=== PATIENT | female | born 2005 | race Caucasian/White ===

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

== ENCOUNTER 2023-03-08 12:31 | Outpatient (CLI) | payer OTHER, SELFPAY ==
[2023-03-08 13:31] LABS: Hematocrit 40.4 % (37.0-47.0); Hemoglobin 13.3 g/dL (12.0-15.0); Mean Corpuscular HGB Conc 32.9 g/dl (32-36); Mean Corpuscular Volume 91.2 fl (80-100); Mean Platelet Volume 9.8 fl (7.4-10.4); Platelet Count Result 307 k/mm3 (150-375); Red Blood Count 4.43 M/mm3 (4.2-5.4); Red Cell Distribution Width 12.5 % (11.5-14.5)
[2023-03-08 14:10] LABS: Thyroid Stimulating Hormone 0.297 uIU/mL (0.465-4.680)
[2023-03-08 14:19] LABS: Free T4 Free Thyroxine 0.96 ng/mL (0.78-2.19)
[2023-03-12 15:45] LABS: Prolactin 7.3
== END 2023-03-08 12:32 | disposition home or self-care (01) ==
LOC: ANHLAB 12:36
PROVIDERS: Visit Provider Nurse Practitioner
DX: N64.52 Nipple discharge (principal)
CPT/HCPCS: 36415; 84146; 84439; 84443; 85027

== ENCOUNTER → 2023-03-14 14:40 | Outpatient (CLI) | payer OTHER, SELFPAY ==
--- NOTE | ~2023-03-14 | US_ITS ---
US breast RT complete DATE: 03/14/2023 14:59 INDICATION: Right clear right nipple discharge TECHNIQUE: Complete sonographic imaging of right breast including all 4 quadrants and subareolar area COMPARISON: None FINDINGS: No suspicious mass or shadowing is detected. No cyst or other significant sonographic findi ng is noted. IMPRESSION: Negative Reviewed, dictated and finalized at [facility] Reviewed, dictated and finalized at [facility]. IMPRESSION: Negative
== END ==
PROVIDERS: PCP Nurse Practitioner; Visit Provider Nurse Practitioner
DX: N64.52 Nipple discharge (principal)
CPT/HCPCS: 76641

== ENCOUNTER 2023-10-13 07:22 | Outpatient (CLI) | payer OTHER, SELFPAY ==
[2023-10-13 07:52] LABS: Basophils Absolute Auto 0.1 K/mm3 (0.0-0.1); Basophils Percent Auto 1.3 % (0.2-1.2); Eosinophils Absolute Auto 0.4 K/mm3 (0-0.3); Hematocrit 39.7 % (37.0-47.0); Hemoglobin 12.8 g/dL (12.0-15.0); Immature Granulocyte Absolute 0.02 K/mm3 (0.00-0.031); Immature Granulocyte Percent A 0.3 % (0-0.5); Lymphocytes Absolute Auto 2.55 K/mm3 (0.9-3.2); Lymphocytes Percent Auto 36.6 % (18.3-44.2); Mean Corpuscular HGB Conc 32.2 g/dl (32-36); Mean Corpuscular Volume 96.1 fl (80-100); Mean Platelet Volume 9.7 fl (7.4-10.4); Monocytes Absolute Auto 0.3 K/mm3 (0.1-0.6); Monocytes Percent Auto 4.6 % (2.6-8.5); Neutrophils Absolute Auto 3.6 K/mm3 (1.3-6.7); Neutrophils Percent Auto 51.2 % (45.5-73.1); Platelet Count Result 338 k/mm3 (150-375); Red Blood Count 4.13 M/mm3 (4.2-5.4); Red Cell Distribution Width 13.8 % (11.5-14.5)
[2023-10-13 08:11] LABS: Alanine Aminotransferase 15 U/L (6-35); Albumin Level 4.4 g/dL (3.5-5.1); Alkaline Phosphatase 38 U/L (38-126); Anion Gap 7 mmol/L (8-16); Aspartate Amino Transferase 20 U/L (14-36); Bilirubin,Total 0.6 mg/dL (0.2-1.3); Blood Urea Nitrogen 10 mg/dL (7-17); Calcium 9.2 mg/dL (8.4-10.2); Carbon Dioxide 22 mmol/L (22-30); Chloride 109 mmol/L (98-107); Estimated Glomerular Filt Rate > 60; Glucose 107 mg/dL (65-110); Potassium 3.9 mmol/L (3.4-5.0); Sodium 138 mmol/L (137-145)
[2023-10-13 08:39] LABS: Thyroid Stimulating Hormone 0.632 uIU/mL (0.465-4.680)
== END 2023-10-13 07:23 | disposition home or self-care (01) ==
PROVIDERS: PCP Nurse Practitioner
DX: Z13.0 Encounter for screening for diseases of the blood and blood-forming organs and certain disorders involving the immune mechanism (principal); Z13.1 Encounter for screening for diabetes mellitus; Z13.29 Encounter for screening for other suspected endocrine disorder
CPT/HCPCS: 36415; 80053; 84443; 85025

== ENCOUNTER 2024-05-10 08:43 | Outpatient (CLI) | payer OTHER, SELFPAY ==
[2024-05-10 09:53] LABS: Hemoglobin A1C 5.1 % (<5.7); Thyroid Stimulating Hormone 0.635 uIU/mL (0.465-4.680)
[2024-05-12 13:24] LABS: Insulin Level Total 17.1 uIU/mL
== END 2024-05-10 08:44 | disposition home or self-care (01) ==
PROVIDERS: Visit Provider Nurse Practitioner
DX: Z13.29 Encounter for screening for other suspected endocrine disorder (principal); Z68.36 Body mass index [BMI] 36.0-36.9, adult; E66.09 Other obesity due to excess calories
CPT/HCPCS: 36415; 83036; 83525; 84439; 84443

== ENCOUNTER 2024-11-06 07:03 | Outpatient (CLI) | payer OTHER, SELFPAY ==
--- OUTSIDE RECORDS SUMMARY | 2024-11-06 07:09 | XMS_ITS | Clinical Summary ---
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 [employer] Gender Identity Not on file Sexual Orientation Not on file Plan of Treatment Health Maintenance Due Date Last Done Comments Hepatitis C Virus (HCV) Screening 2003 TdaP Immunization 2003 Human Papillomavirus (HPV) Immunization (1 - 3-dose series) 2018 Meningococcal B Immunization (1 of 2 - Standard) 2019 Hepatitis B Immunization (1 of 3 - 19+ 3-dose series) 2022 SARS-COV-2 Immunization ( - 2023- season) 2024 06/11/2021, 11/06/2020, 10/16/2020 Influenza Immunization (Seas on Ended) 2025 05/11/2021, 05/05/2020, 04/01/2019 Respiratory Syncytial Virus (RSV) Immunization (Adult) (1 - 1-dose 75+ series) 2078 Meningococcal Immunization (ACWY) Aged Out No longer eligible b ased on patient's age to complete this topic Pneumococcal Immunization Combined Aged Out No longer eligible b ased on patient's age to complete this topic Rotavirus Immunization Aged Out No lo nger eligible based on patient's age to complete this topic
--- OUTSIDE RECORDS SUMMARY | 2024-11-06 07:10 | XMS_ITS | Clinical Summary ---
Author Organization [facility] Address [address] [place] [address] Care Team Providers Care Dumpman Name Role Phone Unavailable Primary Care Provider Unavailabl e Allergies Active Allergy Reactions Criticality Noted Date Comments Adhesive Tape-Silicones Rash Low 04/21/2022 Azithromycin Rash Low 04/21/2022 Medications methylphenidate HCl (CONCERTA) 36 mg Extended Release tablet Take 1 tablet by mouth every day after a meal 30 Tablet 07/21/2022 Active Encounters Date Type Department Care Team Description 11/04/2024 External Device Data [facility] Provider, Abstract 10/08/2024 External Device Data [facility] Provider, Abstract 10/08/2024 External Device Data [facility] Provider, Abstract 09/27/2024 External Device Data [facility] Provider, Abstract 09/26/2024 External Device Data [facility] Provider, Abstract 09/23/2024 External Device Data [facility] Provider, Abstract 09/09/2024 External Device Data [facility] Provider, Abstract 08/14/2024 External Device Data [facility] Provider, Abstract 08/13/2024 External Device Data [facility] Provider, Abstract 08/12/2024 External Device Data [facility] Provider, Abstract from Last 3 Months Social History Tobacco Use Types Packs/Day Years Used Date Smoking Tobacco: Never Assessed Adolescent Education Answer Date Record ed Getting School Help Needed Not on file 02/11 Comments Unknown Sex and Gender Information Value Date Recorded Sex Assigned at Not on file Legal Sex Female 2:03 PM CDT Gender Identity Not on file Sexual Orientation Not on file Plan of Treatment Health Maintenance Due Date Last Done Comments CHLAMYDIA SCREENING (ANNUAL) 11-24 YEARS 2014 HPV VACCINES (1 - 3-dose series) 2018 DTAP/TDAP/TD VACCINES (1 - Tdap) 2022 HEPATITIS B VACCINES (1 of 3 - 19+ 3-dose series) 05/23 INFLUENZA VACCINE (#1) 2024 CERVICAL CANCER SCREENING 2024 HPV/Cotest (21-29) 2024 PAP SMEAR 2024 Insurance RX [facility] [employer]
--- OUTSIDE RECORDS SUMMARY | 2024-11-06 07:10 | XMS_ITS | Encounter Summary ---
Author Organization [facility] Address [address] [place] [address] Care Team Providers Care Steam Flattener Name Role Phone Unavailable Primary Care Provider Unavailabl e Encounter Details Date Type Department Care Team (Late st Contact Info) Description 11/04/2024 External Device Data [facility] Provider, Abstract NO ADDRESS ON FILE Social History Tobacco Use Types Packs/Day Years Used Date Smoking Tobacco: Never Assessed Adolescent Education Answer Date Record ed Getting School Help Needed Not on file 02/11 Comments Unknown Sex and Gender Information Value Date Recorded Sex Assigned at Not on file Legal Sex Female 2:03 PM CDT Gender Identity Not on file Sexual Orientation Not on file documented as of this encounter Plan of Treatment Not on file documented as of this encounter Visit Diagnoses Not on filedocumented in this encounter
--- OUTSIDE RECORDS SUMMARY | 2024-11-06 07:10 | XMS_ITS | Clinical Summary ---
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 Estimator Name Role Phone Shelby Greer Primary Care Provider [phone] Allergies Active Allergy Reactions Criticality Noted Date Comments Adhesive Tape-Silicones Rash Medium 04/21/2022 Azithromycin Rash,Urticaria Medium 04/03/2017 Atxgvlxe-Hsanzgpbhp-Rjhwtkmzg Urticaria Medium 2016 Medications chlorhexidine (PERIDEX) 0.12 % solution 07/24/19 24 Active clindamycin (CLEOCIN T) 1 % external solution 08/04/19 24 Active Vestura, 28, 3-0.02 mg per tablet Take 1 tablet by mouth daily 09/17/19 24 Active ondansetron (ZOFRAN) 4 mg tablet Take by mouth 07/24/19 24 Active PreviDent 5000 Sensitive 1.1-5 % paste USE DIRECTED TWICE DAILY TO BRUSH 07/31/19 24 Active metFORMIN XR (GLUCOPHAGE XR) 500 mg 24 hr tablet TAKE 1 TABLET BY MOUTH EVERY DAY FOR 1 WEEK THEN INCREASE TO TWICE A DAY 08/12/19 25 Active PreviDent 5000 Plus 1.1 % cream 2 (two) times a day 06/23/20 24 Active sertraline (ZOLOFT) 100 mg tabletIndications :CARMELINA (generalized anxiety disorder) Take 1 tablet (100 mg total) by mouth daily 90 tablet 1 08/28/19 25 Active aluminum chloride (DRYSOL) 20 % external solutionIndicatio ns:Hyperhidrosis Apply topically nightly To the affected area. Wash off in the morning. 35 mL 08/28/19 25 Active spironolactone (ALDACTONE) 25 mg tabletIndications :Acne vulgaris TAKE 1 TABLET (25 MG TOTAL) BY MOUTH DAILY. 90 tablet 09/23/19 25 Active methylPREDNISolon e (MEDROL DOSEPACK) 4 mg Dosepack Take as directed on package. 21 tablet 10/24/19 25 Active lisdexamfetamine (VYVANSE) 40 mg capsuleIndication s:Attention deficit hyperactivity disorder (ADHD), predominantly inattentive type Take 1 capsule (40 mg total) by mouth every morning 30 capsule 11/04/19 25 Active etonogestreL (NEXPLANON) 68 mg implantIndication s: Contraception by subdermal route 025 Discontinu ed(Therapy completed) lisdexamfetamine (VYVANSE) 40 mg capsuleIndication s:Attention deficit hyperactivity disorder (ADHD), predominantly inattentive type Take 1 capsule (40 mg total) by mouth every morning 30 capsule 10/07/19 25 025 Discontinu ed(Reorder ) indomethacin (INDOCIN) 50 mg capsule Take 1 capsule (50 mg total) by mouth 3 (three) times a day with meals for 7 days Take with food 21 capsule 10/24/19 25 025 Active Problems Problem Noted Date Diagnosed Date Morbid obesity with BMI of 45.0-49.9, adult 12/2024 Assessment & Plan (08/28/2024 2:58 PM SALVAGE DIVER): Reviewed BMI Focus on healthy diet options Work on healthy changes Menorrhagia 02/07/2024 Assessment & Plan (02/08/2024 9:17 AM CDT): Chronic. Managed by gynecology with Sonja and CP. Depressive disorder 11/21/2023 Assessment & Plan (08/28/2024 2:58 PM SALVAGE DIVER): Chronic and not controlled. Increase Zoloft to 100 mg daily. Follow-up in 1 month for recheck or sooner if needed. Assessment & Plan (02/08/2024 9:17 AM CDT): Chronic. See above. Acne vulgaris 09/21/2023 Assessment & Plan (08/28/2024 2:57 PM SALVAGE DIVER): Chronic. No longer sees Dermatology. We discussed trial of spironolactone to help with acne. She was recently diagnosed with insulin resistance, and I think PCOS is also possibility. We discussed side effects. Patient agreeable. Will follow-up in 1 month for recheck. Check BMP at that time. Assessment & Plan (02/08/2024 9:43 AM CDT): Chronic and controlled with xvaw-ecu-jidemrb treatments. Continue current care. Assessment & Plan (09/21/2023 8:30 AM SALVAGE DIVER): Chronic. Currently using clindamycin solution and chlorhexidine as needed. Patient will let me know when she needs refills. Continue current management. CARMELINA (generalized anxiety disorder) 09/21/2023 Assessment & Plan (08/28/2024 2:58 PM SALVAGE DIVER): See above. Assessment & Plan (02/08/2024 9:44 AM CDT): Patient is doing well with her sertraline 75 mg right now. Will wait and see how she does with her new job. If needed we can increase to 100 mg. She will update me via [employer] to let me know how she is doing. Assessment & Plan (09/21/2023 8:31 AM SALVAGE DIVER): Chronic. Not currently controlled. Patient interested in increasing her medication. Will increase Zoloft to 75 mg daily. Will plan to follow-up in 4-6 weeks if symptoms are still uncontrolled and can continue to titrate dose as needed. Patient voiced agreement with this plan. All questions answered. Attention deficit hyperactiv ity disorder (ADHD), predominantly inattentive type 09/21/2023 Assessment & Plan (08/28/2024 2:58 PM SALVAGE DIVER): Chronic. Symptoms are still uncontrolled. Will increase Vyvanse to 40 mg daily. Follow-up in 1 month for recheck. Controlled substance contract signed today, 08/28/2024. Urine drug screening ordered today. Assessment & Plan (02/08/2024 9:43 AM CDT): Chronic. Symptoms not controlled. Will plan to increase her Vyvanse to 30 mg when she is due for her next refill in February. Plan to follow-up in 6 months or sooner if needed. Assessment & Plan (09/21/2023 8:32 AM SALVAGE DIVER): Chronic. Currently doing well on Vyvanse 20 mg daily. Continue current management. Patient will let me know when she is due for refill. Follow-up 6 months or sooner as needed. Routine adult health maintenance 09/20/2023 Overview (02/07/2024): Health Maintenance: -PCV20: N/A -Tdap vaccine: 2014 -Influenza vaccine: 2022 -Shingles vaccine: N/A -Colonoscopy: N/A -Last WWE: @21 -Last Mammogram: N/A -Last DEXA: N/A -Last eye exam: N/A -Last MHA: N/A Assessment & Plan (02/08/2024 9:44 AM CDT): Health Maintenance: -PCV20: N/A -Tdap vaccine: 2014 -Influenza vaccine: 2022 -Shingles vaccine: N/A -Colonoscopy: N/A -Last WWE: @21 -Last Mammogram: N/A -Last DEXA: N/A -Last eye exam: N/A -Last MHA: N/A Second dose of Men B administered today. She is otherwise up-to-date on health maintenance. Work on healthy diet and exercise habits. Resolved Problems Problem Noted Date Diagnosed Date Resolved Date Class 2 obesity due to exces s calories without serious comorbidity with body mass index (BMI) of 38.0 to 38.9 in adult 09/21/202312/2024 Assessment & Plan (02/08/2024 9:17 AM CDT): Reviewed BMI Focus on healthy diet options Work on healthy changes Assessment & Plan (09/21/2023 8:30 AM SALVAGE DIVER): Reviewed BMI Focus on healthy diet options Work on healthy changes Encounters Date Type Department Care Team Description 10/23/2024 3:00 PM CDT Office Visit [address] [phone] Shelby Greer PA Right hip pain (Primary Dx); Acute bilateral low back pain with right-sided sciatica; Hot flashes; Attention deficit hyperactivity disorder (ADHD), predominantly inattentive type; Depressive disorder; CARMELINA (generalized anxiety disorder) 10/03/[address] [phone] Shelby Greer PA 09/30/[address] [phone] Shelby Greer PA Prior Auth Approval for Lisdexamfetamine Dimesylate 08/28/2024 2:35 PM SALVAGE DIVER Lab [facility] [address] [place] [id number] Encounter for drug screening 08/28/2024 2:00 PM SALVAGE DIVER Office Visit [address] [phone] Shelby Greer PA Attention deficit hyperactivity disorder (ADHD), predominantly inattentive type (Primary Dx); Encounter for drug screening; Depressive disorder; CARMELINA (generalized anxiety disorder); Acne vulgaris; Hyperhidrosis; Morbid obesity with BMI of 45.0-49.9, adult (HCC) from Last 3 Months Immunizations Immunization Administration Dates Next Due DTaP 06/08/2008, 5,2003,10/01,2003 H1N1 Nasal 06/03/2009 HPV, Unspecified 02/26/2018,06/09/2017, 7 Hep A, Pediatric 06/07/2006,06/28/2005 Hep B Vaccine 04/29/2004,2003,2003 HiB 09/05/2004, 4,2003,07/31 Influenza LAIV (Nasal) 06/03/2009 Influenza, Quadrivalent, Saige l Culture-based MDCK, Preservative Free, Antibiotic Free, Intramuscular 05/04/2023 Influenza, Quadrivalent, Spl it, Intramuscular 05/05/2022 Influenza, Quadrivalent, Spl it, Preservative Free, Intramuscular 05/11/2021,05/05/2020 Influenza, Trivalent, Preser vative Free, Intramuscular 04/25/2024 MMR 12/29/2008,09/05/2004 Meningococcal ACWY, Unspecified 02/26/2021,04/01 Meningococcal B, OMV (Bexsero) 02/08/2024 Meningococcal B, unspecified 02/27/2022 Meningococcal MCV4, Unspecified 06/28/2005 Pneumococcal Conjugate 7-Valent 06/06/20 04,02/26/2004,2003,07/31 Polio, Unspecified 06/08/2008, 4,2003,10/01 Tdap 02/17/2015 Varicella 02/17/2015,06/06/2004 Surgical History Surgery Date Site/Laterality Comments TYMPANOSTOMY TUBE PLACEMENT Bilateral Family History Medical History Relation Name Comments ADD / ADHD Brother Hyperlipidemia Father Hypertension Father seaonal allergies Father No Known Problems Maternal Grandfather Hyperlipidemia Maternal Grandmother Hypertension Maternal Grandmother Diabetes Mother Hyperlipidemia Mother Supraventricular tachycardia Mother non ischemic cardiomyopathy Mother Atrial fibrillation Paternal Grandfather Diabetes Paternal Grandmother Hyperlipidemia Paternal Grandmother Hypertension Paternal Grandmother Obesity Paternal Grandmother Autism Sister Relation Name Status Comments Brother Alive Father Alive Maternal Grandfather Maternal Grandmother Alive Mother Alive Paternal Grandfather Alive Paternal Grandmother Sister Social History Tobacco Use Types Packs/Day Years Used Date Smoking Tobacco: Never Smokeless Tobacco: Never Tobacco Cessation:Counseling Given: Not Answered AUDIT-C Answer Date Recorded Q1: How often do you have a drink containing alcohol? Never 09/21/2023 Q2: How many drinks containi ng alcohol do you have on a typical day when you are drinking? Patient does not drink Q3: How often do you have si x or more drinks on one occasion? Never 09/21/2023 PHQ-2 Answer Date Recorded PHQ-2 Total Score (If total score is 3 or more points, staff should administer the PHQ-9) 2 08/28/2024 PHQ-9 Answer Date Recorded PHQ-9 Total Score 19 08/28/2024 Comments No Sex and Gender Information Value Date Recorded Sex Assigned at Not on file Legal Sex Female 4:27 AM SALVAGE DIVER Gender Identity Female 09/21/2023 9:06 AM SALVAGE DIVER Sexual Orientation Straight 02/01/2024 8: 48 AM CDT Obstetrics History Last Filed Vital Signs Vital Sign Reading Time Taken Comments Blood Pressure 120/90 10/23/2024 2:59 PM CDT Pulse 92 10/23/2024 2:59 PM CDT Temperature 35.6 C (96.1 F) 10/23/2024 2:59 PM CDT Respiratory Rate 18 10/23/2024 2:59 PM CDT Oxygen Saturation 98% 10/23/2024 2:59 PM CDT Inhaled Oxygen Concentration - - Weight 108.9 kg (240 lb) 10/23/2024 2:59 PM CDT Height 152.4 cm (5') 10/23/2024 2:59 PM CDT Body Mass Index 46.87 10/23/2024 2:59 PM CDT Plan of Treatment Health Maintenance Due Date Last Done Comments Cervical Cancer Screening 2003 Hepatitis C Screening 2003 Meningococcal B Vaccine (2 o f 2 - Bexsero SCDM 2-dose series) 08/10/2024 02/08/2024, 02/27/2022 Regular Well Visit/Exam 18-64 02/07/2025 02/08/2024 DTaP/Tdap/Td Vaccine (7 - Td or Tdap) 02/17/2025 02/17/2015, 06/08/2008, 12/02/2004, Additional history exists Depression Screening 08/28/2025 08/28/2024, 08/28/2024, 09/21/2023, Additional history exists Hepatitis B Screening Completed 04/29/2004 , 2003, 2003 Pneumococcal vaccine <65 Completed 004, 02/26/2004, 2003, Additional history exists Varicella Vaccines Completed 02/17/2015, 06/06/2004 HPV Vaccines Completed 02/26/2018, 05/23, 02/20/2017 Meningococcal Vaccine Completed 02/26/2021 , 04/01/2015, 06/28/2005 Covid-19 Vaccine Completed 04/25/2024, , 05/24/2022, Additional history exists Influenza Vaccine Completed 04/25/2024, , 05/05/2022, Additional history exists Procedures Procedure Name Priority Date/Time Associated Diagnosis Comments DRUGS OF ABUSE SCREEN, URINE WITH REFLEX CONFIRMATION Routine 08/28/2024 2:39 PM SALVAGE DIVER Encounter for drug screening from Last 3 Months Results * (ABNORMAL) Drugs of Abuse Screen, Urine with Reflex Confirmation (08/28/2024 2:39 PM SALVAGE DIVER) Amphetamine, ur Not Detected CutOff 500ng/mL Comment: Interpretive Data - Amphetamines: Samples containing greater than 500 ng/mL d-methamphetamine or other cross-reacting amphetamine compounds are reported as positive. Amphetamine immunoassays are subject to significant false positive rates due to cross-reactivity of non-amphetamine drugs. Confirmatory testing required for definitive results. Current Interpretive Data was last reviewed 2023. Testing performed by: [address] [id number] Barbiturates, ur Not Detected CutOff 200ng/mL [facility] Comment: Interpretive Data - Barbiturates: Samples containing greater than 200 ng/mL secobarbital or other cross-reacting barbiturate compounds are reported as positive. False positive and false negative results are possible. Confirmatory testing required for definitive results. Current Interpretive Data was last reviewed 2023. Testing performed by: [address] [address] Benzodiazepines, ur Not Detected CutOff 100ng/mL [facility] Comment: Interpretive Data - Benzodiazepines: Samples containing greater than 100 ng/mL nordiazepam or other cross-reacting compounds are reported as positive. False positive and false negative results are possible. Confirmatory testing required for definitive results. Current Interpretive Data was last reviewed 2023. Testing performed by: [address] [address] Cannabinoids, ur Screen Positive, presumptive (A) CutOff 50 ng/mL [facility] Comment: Interpretive Data - Cannabinoids: Samples containing greater than 50 ng/mL delta-9 THC -COOH or other cross- reacting compounds are reported as positive. False positive and false negative results are possible. Confirmatory testing required for definitive results. Current Interpretive Data was last reviewed 2023. Testing performed by: [facility], [address] [place] [address]., [id number] Cocaine, ur Not Detected CutOff 150ng/mL [facility] Comment: Interpretive Data - Cocaine: Samples containing greater than 150 ng/mL benzoylecgonine or other cross- reacting compounds are reported as positive. False positive and false negative results are possible. Confirmatory testing required for definitive results. Current Interpretive Data was last reviewed 2023. Testing performed by: [address] [address] Fentanyl, Ur Not Detected CutOff 5 ng/mL [facility] Comment: Interpretive Data - Fentanyl: Samples containing greater than 1 ng/mL fentanyl or other cross-reacting fentanyl compounds are reported as positive. False positive and false negative results are possible. Confirmatory testing required for definitive results. Current Interpretive Data was last reviewed 2023. Testing performed by: [address] [address] Methadone, ur Not Detected CutOff 300ng/mL [facility] Comment: Interpretive Data - Methadone: Samples containing greater than 300 ng/mL d,l-methadone or other cross-reacting compounds are reported as positive. False positive and false negative results are possible. Confirmatory testing required for definitive results. Current Interpretive Data was last reviewed 2023. Testing performed by: [address] [id number] Opiates, ur Not Detected CutOff 300ng/mL [facility] Comment: Interpretive Data - Opiates: Samples containing greater than 300 ng/mL morphine or other cross-reacting compounds are reported as positive. False positive and false negative results are possible. Confirmatory testing required for definitive results. Current Interpretive Data was last reviewed 2023. Testing performed by: [address] [address] Oxycodone, ur Not Detected CutOff 100ng/mL [facility] Comment: Interpretive Data - Oxycodone: Samples containing greater than 100 ng/mL oxycodone or other cross-reacting compounds are reported as positive. False positive and false negative results are possible. Confirmatory testing required for definitive results. Current Interpretive Data was last reviewed 2023. Testing performed by: [address] [address] Phencyclidine, ur Not Detected CutOff 25 ng/mL [facility] Comment: Interpretive Data - Phencyclidine: Samples containing greater than 25 ng/mL phencyclidine or other cross-reacting compounds are reported as positive. False positive and false negative results are possible. Confirmatory testing required for definitive results. Current Interpretive Data was last reviewed 2023. Testing performed by: [address] [address] Urine Creatinine 91 mg/dL [facility] Comment: Interpretive Data Urine Creatinine: < 10 mg/dL is extremely dilute = or > 10 but < 20 mg/dL is dilute = or > 20 mg/dL is normal Current Interpretive Data was last revised on 2017. Testing performed by: [address] [address] Urine 08/28/2024 2:39 PM SALVAGE DIVER 08/28/2024 6:18 PM SALVAGE DIVER Narrative [facility] - 08/28/2024 6:43 PM SALVAGE DIVER Drug of Abuse screening is performed by immunoassay for medical purposes only. This is not to be used for Pain Management purposes. If Detected, confirmation testing will be performed for Amphetamines, Cocaine, Fentanyl, Methadone, Opiates, Oxycodone or Phencyclidine. Shelby [facility] URINE ORDERABLES Ann nguyen Result [facility] [address] [facility] Department of Laboratories [place], [place] [id number] from Last 3 Months Insurance [facility] Care Teams Auto Body Estimator Relationship Specialty Start Date End Date Shelby Greer PA [address] [place] [address] PCP - General Family Medicine 09/10/23
--- OUTSIDE RECORDS SUMMARY | 2024-11-06 07:10 | XMS_ITS | Data Portability ---
Author Organization [facility] Kahn Address [address] [place] [address] Assessment Encounter Date Assessment Date Assessment LastModified by Organization Details LastModified Time 09/22/2022 09/22/2022 17 y/o here for f/u of ADHD management, who also struggles with acute testing anxiety Not available 09/24/2022 10:50:07 03/23/2023 03/23/2023 17 y/o here with h/o ADHD, stable sxs, but worsening anxiety and new consideration of depression Not available 03/26/2023 13:38:37 Plan of Treatment Reminders Order Date Submit Date Provider Last Modified By Organization Details Last Modified Time Details Appointments None recorded. Lab PPD (purified protein derivative) , skin test 2021 022 [place] In-Office Order, Internal Use Only DO Not Attach Compendium DO Not Attach Compendium, Do Not Delete/merge, [id number] 14:44:43 Referral None recorded. Procedures None recorded. Surgeries None recorded. Imaging None recorded. Medication Orders Vyvanse 20 mg capsule 2022 023 [facility] #[id number], [address] [place], [place], [id number], 3 14:57:24 sertraline 50 mg tablet 2022 023 [facility] #[id number], [address] [place], [place], [id number], 3 14:57:24 hydroxyzine HCl 25 mg tablet 2022 023 [facility] #[id number], [address], [place], [id number], 3 12:52:00 Concerta 36 mg tablet,exte nded release 2022 023 [facility] #53418, [address], [place], [id number], 3 10:45:22 benzoyl peroxide 10 % topical cleanser 2021 [facility] #50058, [address], [place], [id number], 2 14:43:12 clindamycin phosphate 1 % topical solution 2021 022 [facility] #37034, [address], [place], [id number], 2 14:43:13 Patient TargetsNo targets recorded. Patient InstructionsNo instructions recorded. Reason for Referral None Reported. Results Created Date Observation Date Name Description Value Unit Range Abnormal Flag Note LastModifiedBy Organization Detail LastModifiedTime 05/10/20 22 05/10/2022 PPD (morgan fied prote in deriv ative ), skin test Result Negati ve Not Available In-Office Order Internal Use Only DO Not Attach Compendium DO Not Attach Compendium, Do Not Delete/merge, [id number] 05/08/2022 12:36:38 Result Notes None recorded. Problems Name Problem SNOMED Code Status Onset Date Resolution Date Notes Provider Name and Address Organization Details Recorded Time Attention deficit hyperactiv ity disorder 033030318 Active 2022 Nelli Hubbard MD Attn: April g,[address] 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, [place], [address], [facility] 3 13:36:03 Depressive disorder 80384349 Active 2022 sertraline started 04/14, needs to find counselor Nelli Hubbard MD Attn: April g,[address] [facility], [place], [address], [facility] 3 13:38:55 Problem Notes None recorded. Medical Equipment None Reported. Allergies Allergen ID Allergen Name Allergen Category Reaction Reaction Severity Criticality Documentation Date Start Date Code Code System Note Provider Name and Address Organization Details Recorded Time 611243 Medicinal product containin g cephalosp grace and acting as antibacte rial agent (product) medicatio n rash Not available low 09/22/2022 60063 9009 SNOMED Not Available Not Available Not Available 511516 azithromy sudheer medicatio n rash Not available low 09/22/2022 03214 RxNorm Not Available Not Available Not Available Medications Name Sig Start Date Stop Date Status Note LastModified by Organization Details LastModified Time Prescriptio n - Renewal 09/24 completed Not Available Not Available Not Available Prescriptio n - New active Not Available Not Available Not Available ondansetron HCl 4 mg tablet TAKE 1 TABLET BY MOUTH EVERY 4 TO 6 HOURS NEEDED active Not Available Not Available No t Available benzoyl peroxide 10 % topical cleanser WASH THE AFFECTED AREA(S) BY TOPICAL ROUTE ONCE DAILY at night active Not Available Not Available No t Available oxycodone-a cetaminophe n 5 mg-325 mg tablet active Not Available Not Available No t Available hydroxyzine HCl 25 mg tablet take 1 tablet as needed before tests, not more than twice per day active Not Available Not Available No t Available methylpredn isolone 4 mg tablets in a dose pack FOLLOW PACKAGE DIRECTION S 08/20 completed Not Available Not Available Not Available sertraline 50 mg tablet TAKE 1 TABLET BY MOUTH EVERY DAY active Not Available Not Available No t Available methylpheni date ER 36 mg tablet,exte nded release 24 hr TAKE 1 TABLET BY MOUTH EVERY DAY AFTER MEALS active Not Available Not Available No t Available amoxicillin 875 mg-potassiu m clavulanate 125 mg tablet TAKE 1 TABLET BY MOUTH TWICE DAILY WITH FOOD 08/20 completed Not Available Not Available Not Available clindamycin phosphate 1 % topical solution APPLY THIN LAYER TOPICALLY TO THE AFFECTED AREA EVERY DAY AFTER CLEANING active Not Available Not Available No t Available chlorhexidi ne gluconate 0.12 % mouthwash active Not Available Not Available No t Available PreviDent 5000 Sensitive 1.1 %-5 % dental paste USE DIRECTED TWICE DAILY TO BRUSH active Not Available Not Available No t Available Vyvanse 20 mg capsule 2023 active Not Available Not Available Not Avai lable Vestura (28) 3 mg-0.02 mg tablet TAKE 1 TABLET BY MOUTH EVERY DAY active Not Available Not Available No t Available Vyvanse 10 mg capsule TAKE 1 CAPSULE BY MOUTH DAILY 10/16 completed Not Available Not Available Not Available Vitals Date Recorded Body temperature Body weight Systolic blood pressure Diastolic blood pressure Provider Name and Address Organization Details Last Updated DateTime 05/31/2022 98.8 [degF] 32765 g 124 mm[Hg] 66 mm[Hg] Rubi Brewster RN [place] - [facility] 2 14:12:40 Date Recorded Body temperature Body weight Body mass index (BMI) Percentile per age and sex Body mass index (BMI) Body height Systolic blood pressure Diastolic blood pressure Provider Name and Address Organization Details Last Updated DateTime 3 97.2 [degF] 95327.1 3 g 89 % 27.3 kg/m2 172.72 cm 120 mm[Hg] 80 mm[Hg] Yenny Webb MA [place] - [facility] 3 12:31:39 Date Recorded Body height Body temperature Body mass index (BMI) Body mass index (BMI) Percentile per age and sex Body weight Systolic blood pressure Diastolic blood pressure Provider Name and Address Organization Details Last Updated DateTime 3 172.72 cm 98.3 [degF] 30.7 kg/m2 94 % 81254.3 6 g 118 mm[Hg] 80 mm[Hg] Yenny Webb MA [place] - [facility] 3 14:33:30 Social History None recorded. Functional Status None recorded. Mental Status None recorded. Family History Nothing Reported. Medical History No medical history recorded. Gynecological History Statement/Question Response Current Control Method Implant LMP Definite Obstetrics History GPAL:G 0 P 0 0 0 0 Immunizations Vaccine Type Date Status Note Provider Nam e and Address Organization Details Recorded Time Influenza, split virus, quadrivalent, preservative 9 completed Haylie Grady RN null, [place] [facility] 02/26/2023 12:15:37 COVID-19, mRNA, LNP-S, PF, 30 mcg/0.3 mL dose 1 completed Haylie Gr[place] [facility] 02/26/2023 12:15:37 COVID-19, mRNA, LNP-S, PF, 30 mcg/0.3 mL dose 1 completed Haylie Gr[place] [facility] 02/26/2023 12:15:37 COVID-19, mRNA, LNP-S, PF, 30 mcg/0.3 mL dose 1 completed Haylie [place] [facility] 02/26/2023 12:15:37 COVID-19, mRNA, LNP-S, bivalent, PF, 30 mcg/0.3 mL dose 2 completed Haylie [place] [facility] 02/26/2023 12:15:37 Novel [id number]-[id number], nasal 9 completed Haylie Gr[place] [facility] 02/26/2023 12:15:38 Influenza, split virus, quadrivalent, PF 0 completed Haylie [place] [facility] 02/26/2023 12:15:38 Influenza, split virus, quadrivalent, PF 1 completed Haylie [place] [facility] 02/26/2023 12:15:38 DTaP, unspecified formulation 5 completed Eduard Je[place] [facility] 09/21/2023 12:28:05 DTaP, unspecified formulation 8 completed [place]ard [place] [facility] 09/21/2023 12:28:09 DTaP-Hep B-IPV 4 completed [place]ard [place] [facility] 09/21/2023 12:28:18 DTaP-Hep B-IPV 4 completed [place]ard [place] [facility] 09/21/2023 12:28:22 DTaP-Hep B-IPV 4 completed [place]ard [place] [facility] 09/21/2023 12:28:27 Hep A, pediatric, unspecified formulation 5 completed [place]ard [place] [facility] 09/21/2023 12:28:42 Hep A, pediatric, unspecified formulation 6 completed [place] [facility] 09/21/2023 12:28:46 Hib, unspecified formulation 4 completed [place] [facility] 09/21/2023 12:28:59 Hib, unspecified formulation 4 completed [place]ard [place] [facility] 09/21/2023 12:29:03 Hib, unspecified formulation 4 completed [place] [facility] 09/21/2023 12:29:06 Hib, unspecified formulation 5 completed [place] [facility] 09/21/2023 12:29:09 HPV9 7 completed [place] [facility] 09/21/2023 12:29:19 HPV9 7 completed [place] [facility] 09/21/2023 12:29:23 HPV9 8 completed [place] [facility] 09/21/2023 12:29:27 IPV 8 completed [place] [facility] 09/21/2023 12:29:36 Meningococcal MCV4O 5 completed [place] [facility] 09/21/2023 12:29:47 Meningococcal MCV4O 1 [place] [facility] 09/21/2023 12:29:51 meningococcal B, OMV 2 [place] [facility] 09/21/2023 12:30:01 MMR 5 [place] [facility] 09/21/2023 12:30:11 meningococcal MPSV4 5 [place] [facility] 09/21/2023 12:30:28 pneumococcal conjugate PCV 7 4 [place] [facility] 09/21/2023 12:30:37 pneumococcal conjugate PCV 7 4 [place] [facility] 09/21/2023 12:30:40 pneumococcal conjugate PCV 7 4 completed [place] [facility] 09/21/2023 12:30:43 pneumococcal conjugate PCV 7 4 [place] [facility] 09/21/2023 12:30:49 Tdap 5 completed [place] [facility] 09/21/2023 12:30:58 varicella 4 [place] [facility] 09/21/2023 12:31:08 varicella 5 [place] [facility] 09/21/2023 12:31:11 MMR 9 [place] [facility] 09/21/2023 12:33:26 Influenza, split virus, quadrivalent, preservative 2 completed [place] [facility] 05/07/2022 17:15:46 Past Encounters Encounter ID Performer Location Encounter Start Date Encounter Closed Date Diagnosis/Indication Diagnosis SNOMED-CT Code Diagnosis ICD10 Code Diagnosis Note [id number] Eduard Jeong MA [facility] [address] [place] [address] 05/03/2022 16:43:33 05/08/2022 10:28:04 Active or passive immunization 293364580 Z23 [id number] Elyssa Rodríguez [facility] [address] [place] [address] 05/08/2022 12:32:21 05/11/2022 13:57:36 Tuberculosis screening 342467305 Z11.1 [id number] Nelli Hubbard MD [facility] [address] [facility] [address] [place] [address] 05/31/2022 14:07:31 06/01/2022 21:51:29 Attention deficit hyperactivity disorder 813984242 F90.9 -pt doing well on current dose of 36mg methylphen idate, doing well in school socially and academical ly, able to eat and sleep well, gaining weight, BP is stable-rev iewed possible se's to obs for-cont routine sleep and exercise and healthy diet-plan for f/u 6 months, sooner prn concerns Acne 75611849 L70.9 -gentle skin care, wash with cetaphil can continue-b egin meds written, can begin every other night obs for drying/red ness-discu ssed skin improvemen t can take 4 weeks, be patient-f/ u sooner prn acute worsening or changes, specifical ly in scalp/hair line-sun screen discussed Long-term drug therapy 533129165 Z79.638 [id number] Nelli Hubbard MD [facility] [address] [place] [address] 09/22/2022 12:16:23 09/26/2022 09:49:21 Attention deficit hyperactivity disorder 619667832 F90.9 -pt doing well on current dose of concerta but insurance coverage changing, I will send in concerta but if not covered we will trial vyvanse-sh e is doing well in school socially and academical ly, able to eat and sleep well, gaining weight, BP is stable-she does well on homework, struggles with test taking-rev iewed possible se's to obs for-cont routine sleep and exercise and healthy diet-plan for f/u weekly if starting new vyvanse at low dose 10mg, sooner prn concerns Anxiety disorder F41.9 -test taking anxiety, affects her grades, does well on homework-w ill trial hydroxyzin e for tests, 1-2 tabs prn-recomm end trial prior to testing days to obs for se's such as drowsiness , pt to call in 1 week with update group home current use of drug therapy for attention deficit hyperactivity disorder 1043917087 42039 Z79.858 [id number] Nelli Hubbard MD Childcare Physician s [address] [facility] [address] [place] [address] 03/23/2023 14:23:55 03/27/2023 09:06:06 Mixed anxiety and depressive disorder 761124059 F41.8 -discussed pt's main source of sxs: social settings/c lassroom, test taking-rev iewed screens including CARMELINA, PHQ9-discu ssed importance /benefits of counseling , recommende d and gave resources to find a counselor and discussed being persistent with phone calls to get an appt-discu ssed r/b, possible side effects , including Black Box Warning of SSRI, today we will begin sertraline -discussed need for compliance , likely need to taper medication , or possible change if side effects or ineffectiv eness-disc ussed goals of medical therapy and minimum of 6 months duration-r ecommend excellent sleep hygiene, daily exercise and healthy diet-Pt denies SI, or any plan or intent for self harm today, we reviewed safety plan if these sxs arise, gave hotline resource [phone] en-f/u in 4 weeks, sooner prn any concerns Attention deficit hyperactivity disorder 526503497 F90.9 -pt doing well on current dose of vyvanse 20mg, doing well in school socially and academical ly, able to eat and sleep well, gaining weight, BP is stable-rev iewed possible se's to obs for-cont routine sleep and exercise and healthy diet-plan for f/u 6 months, sooner prn concerns Long-term drug therapy 670260761 Z79.899 Health Concerns Section Related Observation LastModified by Organization Detai ls LastModified Time None Recorded Concern Status LastModified by Organization Details LastModified Time None Recorded Advance Directives Directive None Recorded Payers Encounter Date Sequence Insurance Name Policy Number Policy Carlos Covered Member ID Carlos Member ID Guarantor Name 05/03/2022 1 [employer] [id number] Valeria Lombardoger [id number] Roseline Lombardoger 05/08/2022 1 UMR [id number] Valeria Kahn Ganger [id number] Roseline Lombardoger 05/31/2022 1 UMR [id number] Valeria Kahn Ganger [id number] Roseline Lombardoger 09/22/2022 1 UMR [id number] Valeria Kahn Ganger [id number] Roseline Lombardoger 03/23/2023 1 UMR [id number] Valeria Lombardoger [id number] Roseline Knapp Notes Date Note Type Note Provider Name and Address Organization Details Recorded Time 05/31/2022 text/html She is here for f/u for ADHD, pt feels she is doing well and denies any se's such as sleeping difficulty, concentration difficulty, appetite suppression. BP is WNL today. weight is stable. She has questions about change in oil on skin, inc acne onchest, back after getting LARC placed. she uses cetaphil wash right now. no other changes in meds/skin care. Nelli Hubbard MD Attn: Accounting,[address] [facility], [place], [address], [facility] 06/01/2022 17:12:47 03/23/2023 text/html Pt here today to discuss anxiety and depressionCurrent therapy: prn hydroxyzineShe has struggled with anxiety, was taking hydroxyzine as needed, but sxs have worsenedShe feels anxious in classroom setting. Doesn't like school work. 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 She just feels down, not sure why. No counselor.See CARMELINA and PHQ9 - both are moderate ADHD --pt doing well and denies side effects such as emotional swings, decreased appetite, sleeping difficulty, stomach aches, zoning out-pt denies issues taking medication and is compliant on school days Nelli Hubbard MD Attn: Accounting,[address] [facility], [place], [address], [facility] 03/26/2023 13:40:38 OBGyn Episode No OBEpisode recorded.
--- OUTSIDE RECORDS SUMMARY | 2024-11-06 07:10 | XMS_ITS | Clinical Summary ---
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 Teacher Name Role Phone Unavailable Primary Care Provider Unavailabl e Social History Tobacco Use Types Packs/Day Years Used Date Smoking Tobacco: Never Assessed Comments Unknown Sex and Gender Information Value Date Recorded Sex Assigned at Not on file Legal Sex Female 5:54 PM CDT Gender Identity Not on file Sexual Orientation Not on file Plan of Treatment Health Maintenance Due Date Last Done Comments Cervical Cancer Screening Pa p Smear (Age 21 to 29) Every 3 Years 2003 Cervical Cancer Screening 2003 Annual Physical 2006 HPV Vaccines (1 - 3-dose series) 2018 Meningococcal B Vaccine (1 o f 2 - Standard) 2019 Hepatitis C 2021 DTaP, Tdap and Td Vaccines ( 1 - Tdap) 2022 Hepatitis B Vaccines (1 of 3 - 19+ 3-dose series) 2022 COVID-19 Vaccine (1 - 2023-2 5 season) 2024 Meningococcal Vaccine Aged Out No perry patricio eligible based on patient's age to complete this topic Pneumococcal Vaccine: Pediat rics (0 to 5 Years) and At-Risk Patients (6 to 49 Years) Aged Out No longer eligible b ased on patient's age to complete this topic RSV Immunizations Under 20 Months Aged Out No longer eligible based on patient's age to complete this topic
--- OUTSIDE RECORDS SUMMARY | 2024-11-06 07:10 | XMS_ITS | Referral Summary ---
Author Organization [address] Address [address] [place] [id number] Care Team Providers Care Transplanter Name Role Phone Shelby Greer Primary Care Provider [phone] Encounters Date Type Department Care Team Description 10/23/2024 3:00 PM CDT Office Visit [address] [address] Shelby Greer PA Right hip pain (Primary Dx); Acute bilateral low back pain with right-sided sciatica; Hot flashes; Attention deficit hyperactivity disorder (ADHD), predominantly inattentive type; Depressive disorder; CARMELINA (generalized anxiety disorder) 10/03/[address] [address] Shelby Greer PA 09/30/[address] [address] Shelby Greer PA Prior Auth Approval for Lisdexamfetamine Dimesylate 08/28/2024 2:35 PM CIGAR BINDER Lab [facility] [address] [place] [address] Encounter for drug screening 08/28/2024 2:00 PM CIGAR BINDER Office Visit [address] [address] Shelby Greer PA Attention deficit hyperactivity disorder (ADHD), predominantly inattentive type (Primary Dx); Encounter for drug screening; Depressive disorder; CARMELINA (generalized anxiety disorder); Acne vulgaris; Hyperhidrosis; Morbid obesity with BMI of 45.0-49.9, adult (HCC) from Last 3 Months Allergies Active Allergy Reactions Criticality Noted Date Comments Adhesive Tape-Silicones Rash Medium 04/21/2022 Azithromycin Rash,Urticaria Medium 04/03/2017 Fcjiiuzb-Ualoaksnff-Ihlibtqre Urticaria Medium 2016 Medications chlorhexidine (PERIDEX) 0.12 [...] 12/2024 Assessment & Plan (08/28/2024 2:58 PM CIGAR BINDER): Reviewed BMI Focus on healthy diet options Work on healthy changes Menorrhagia 02/07/2024 Assessment & Plan (02/08/2024 9:17 AM CDT): Chronic. Managed by gynecology with Sonja and PANKAJ. Depressive disorder 11/21/2023 Assessment & Plan (08/28/2024 2:58 PM CIGAR BINDER): Chronic and not controlled. Increase Zoloft to 100 mg daily. Follow-up in 1 month for recheck or sooner if needed. Assessment & Plan (02/08/2024 9:17 AM CDT): Chronic. See above. Acne vulgaris 09/21/2023 Assessment & Plan (08/28/2024 2:57 PM CIGAR BINDER): Chronic. No longer sees Dermatology. We discussed trial of spironolactone to help with acne. She was recently diagnosed with insulin resistance, and I think PCOS is also possibility. We discussed side effects. Patient agreeable. Will follow-up in 1 month for recheck. Check BMP at that time. Assessment & Plan (02/08/2024 9:43 AM CDT): Chronic and controlled with upbc-igm-rqpbbwg treatments. Continue current care. Assessment & Plan (09/21/2023 8:30 AM CIGAR BINDER): Chronic. Currently using clindamycin solution and chlorhexidine as needed. Patient will let me know when she needs refills. Continue current management. CARMELINA (generalized anxiety disorder) 09/21/2023 Assessment & Plan (08/28/2024 2:58 PM CIGAR BINDER): See above. Assessment & Plan (02/08/2024 9:44 AM CDT): Patient is doing well with her sertraline 75 mg right now. Will wait and see how she does with her new job. If needed we can increase to 100 mg. She will update me via [employer] to let me know how she is doing. Assessment & Plan (09/21/2023 8:31 AM CIGAR BINDER): Chronic. Not currently controlled. Patient interested in increasing her medication. Will increase Zoloft to 75 mg daily. Will plan to follow-up in 4-6 weeks if symptoms are still uncontrolled and can continue to titrate dose as needed. Patient voiced agreement with this plan. All questions answered. Attention deficit hyperactiv ity disorder (ADHD), predominantly inattentive type 09/21/2023 Assessment & Plan (08/28/2024 2:58 PM CIGAR BINDER): Chronic. Symptoms are still uncontrolled. Will increase [...] needed. Assessment & Plan (09/21/2023 8:32 AM CIGAR BINDER): Chronic. Currently doing well on Vyvanse 20 [...] -Shingles vaccine: N/A -Colonoscopy: N/A -Last WWE: @ -Last Mammogram: N/A -Last DEXA: N/A -Last [...] changes Assessment & Plan (09/21/2023 8:30 AM CIGAR BINDER): Reviewed BMI Focus on healthy diet options Work on healthy changes Immunizations Immunization Administration Dates Next Due DTaP [...] Unspecified 06/08/2008, 4,2003,10/01 Tdap 02/17/2015 Varicella 02/17/2015,06/06/2004 Social History Tobacco Use Types Packs/Day Years [...] on file Legal Sex Female 4:27 AM CIGAR BINDER Gender Identity Female 09/21/2023 9:06 AM CIGAR BINDER Sexual Orientation Straight 02/01/2024 8: 48 AM CDT Last Filed Vital Signs Vital Sign Reading [...] 10/23/2024 2:59 PM CDT Plan of Treatment Not on file Procedures Procedure Name Priority Date/Time Associated Diagnosis Comments DRUGS OF ABUSE SCREEN, URINE WITH REFLEX CONFIRMATION Routine 08/28/2024 2:39 PM CIGAR BINDER Encounter for drug screening from Last 3 Months Results * (ABNORMAL) Drugs of Abuse Screen, Urine with Reflex Confirmation (08/28/2024 2:39 PM CIGAR BINDER) Amphetamine, ur Not Detected CutOff 500ng/mL Comment: Interpretive Data - Amphetamines: Samples containing greater than 500 ng/mL d-methamphetamine or other cross-reacting amphetamine compounds are reported as positive. Amphetamine immunoassays are subject to significant false positive rates due to cross-reactivity of non-amphetamine drugs. Confirmatory testing required for definitive results. Current Interpretive Data was last reviewed 2023. Testing performed by: [address] [address] Barbiturates, ur Not Detected CutOff 200ng/mL [facility] Comment: Interpretive Data - Barbiturates: Samples containing greater than 200 ng/mL secobarbital or other cross-reacting barbiturate compounds are reported as positive. False positive and false negative results are possible. Confirmatory testing required for definitive results. Current Interpretive Data was last reviewed 2023. Testing performed by: [address] [address] Benzodiazepines, ur Not Detected CutOff 100ng/mL [facility] Comment: Interpretive Data - Benzodiazepines: Samples containing greater than 100 ng/mL nordiazepam or other cross-reacting compounds are reported as positive. False positive and false negative results are possible. Confirmatory testing required for definitive results. Current Interpretive Data was last reviewed 2023. Testing performed by: [facility], [address] [place] [address]., [id number] Cannabinoids, ur Screen Positive, presumptive (A) CutOff 50 ng/mL [facility] Comment: Interpretive Data - Cannabinoids: Samples containing greater than 50 ng/mL delta-9 THC -COOH or other cross- reacting compounds are reported as positive. False positive and false negative results are possible. Confirmatory testing required for definitive results. Current Interpretive Data was last reviewed 2023. Testing performed by: [facility], [address] [place] [address], [place]., [address] Cocaine, ur Not Detected CutOff 150ng/mL [facility] Comment: Interpretive Data - Cocaine: Samples containing greater than 150 ng/mL benzoylecgonine or other cross- reacting compounds are reported as positive. False positive and false negative results are possible. Confirmatory testing required for definitive results. Current Interpretive Data was last reviewed 2023. Testing performed by: [address] [address] Fentanyl, Ur Not Detected CutOff 5 ng/mL [facility] Comment: Interpretive Data - Fentanyl: Samples containing greater than 1 ng/mL fentanyl or other cross-reacting fentanyl compounds are reported as positive. False positive and false negative results are possible. Confirmatory testing required for definitive results. Current Interpretive Data was last reviewed 2023. Testing performed by: [address] [address] Methadone, ur Not Detected CutOff 300ng/mL [facility] Comment: Interpretive Data - Methadone: Samples containing greater than 300 ng/mL d,l-methadone or other cross-reacting compounds are reported as positive. False positive and false negative results are possible. Confirmatory testing required for definitive results. Current Interpretive Data was last reviewed 2023. Testing performed by: [address] [address] Opiates, ur Not Detected CutOff 300ng/mL [facility] Comment: Interpretive Data - Opiates: Samples containing greater than 300 ng/mL morphine or other cross-reacting compounds are reported as positive. False positive and false negative results are possible. Confirmatory testing required for definitive results. Current Interpretive Data was last reviewed 2023. Testing performed by: [address] [address] Oxycodone, ur Not Detected CutOff 100ng/mL [facility] Comment: Interpretive Data - Oxycodone: Samples containing greater than 100 ng/mL oxycodone or other cross-reacting compounds are reported as positive. False positive and false negative results are possible. Confirmatory testing required for definitive results. Current Interpretive Data was last reviewed 2023. Testing performed by: [address] [address] Phencyclidine, ur Not Detected CutOff 25 ng/mL [facility] Comment: Interpretive Data - Phencyclidine: Samples containing greater than 25 ng/mL phencyclidine or other cross-reacting compounds are reported as positive. False positive and false negative results are possible. Confirmatory testing required for definitive results. Current Interpretive Data was last reviewed 2023. Testing performed by: [address] [address] Urine Creatinine 91 mg/dL [facility] Comment: Interpretive Data Urine Creatinine: < 10 mg/dL is extremely dilute = or > 10 but < 20 mg/dL is dilute = or > 20 mg/dL is normal Current Interpretive Data was last revised on 2017. Testing performed by: [address] [address] Urine 08/28/2024 2:39 PM CIGAR BINDER 08/28/2024 6:18 PM CIGAR BINDER Narrative [facility] - 08/28/2024 6:43 PM CIGAR BINDER Drug of Abuse screening is performed by immunoassay for medical purposes only. This is not to be used for Pain Management purposes. If Detected, confirmation testing will be performed for Amphetamines, Cocaine, Fentanyl, Methadone, Opiates, Oxycodone or Phencyclidine. Shelby [facility] URINE ORDERABLES Ann l Result [facility] [address] [facility] Department [place] [address] from Last 3 Months Insurance [facility] Care Teams Transplanter Relationship Specialty Start Date End Date Shelby Greer PA [address] [place] [address] PCP - General Family Medicine 09/10/23
--- OUTSIDE RECORDS SUMMARY | 2024-11-06 07:10 | XMS_ITS | Clinical Summary ---
Author Organization [facility] Address [address] [place] [address] Care Team Providers Care User Experience Architect Name Role Phone Enma Corral MD Primary Care Provider [phone] Source Comments [facility],non-owned Affiliates and Associated Physician Practices is amultiple site organization consisting of ambulatory clinics and hospital sitesin [place], [place], [place] and [place]. This disclosure is being madepursuant to the Care Everywhere program and may not contain all information available regarding this patient. Last updated 18.[facility] [employer] Allergies Active Allergy Reactions Criticality Noted Date Comments Jiidseno-Bhbmlsdvbc-Oarepxaru Urticaria Medium 2016 Azithromycin Urticaria Medium 04/03/2017 Medications * Be aware that medications may not be up to date on this document. Alwaysverify current medications with the patient. cetirizine (ZYRTEC) 10 MG tablet Take 10 mg by mouth once daily Active ibuprofen (MOTRIN) 800 MG tablet Take 800 mg by mouth every 6 hours as needed for Pain Active acetaminophen (TYLENOL) 500 MG tablet Take 500 mg by mouth every 4 hours as needed for Fever or Pain Maximum allowable Acetaminophen amount = 4 Grams (4000 mg) / 24 hours. Active methylphenidat e CR 36 MG tablet Take 36 mg by mouth every morning Active Adapalene-Rafael oyl Peroxide (EPIDUO EX) Active Active Problems Problem Noted Date Diagnosed Date Knee pain, right anterior 05/22/2017 Social History Tobacco Use Types Packs/Day Years Used Date Smoking Tobacco: Never Smokeless Tobacco: Never Comments Unknown Sex and Gender Information Value Date Recorded Sex Assigned at Not on file Legal Sex Female 2:23 PM CDT Gender Identity Not on file Sexual Orientation Not on file Last Filed Vital Signs Vital Sign Reading Time Taken Comments Blood Pressure - - Pulse - - Temperature - - Respiratory Rate - - Oxygen Saturation - - Inhaled Oxygen Concentration - - Weight 66 kg (145 lb 8.1 oz) 04/12/2018 3:58 PM CDT Height 165.2 cm (5' 5.04 ) 04/12/2018 3:58 PM CD T Body Mass Index 24.18 04/12/2018 3:58 PM CDT Plan of Treatment Health Maintenance Due Date Last Done Comments HIV SCREENING 2018 HPV VACCINE (1 - 3-dose series) 2018 CHLAMYDIA/GONORRHEA SCREENING 2019 MENINGOCOCCAL (Group B) VACC INE SHARED DECISION-MAKING (1 of 2 - Standard) 2019 HEPATITIS C SCREENING 05/30/2021 DTAP/TDAP/TD VACCINES (1 - Tdap) 2022 HEPATITIS B VACCINE (1 of 3 - 19+ 3-dose series) 2022 COVID-19 VACCINE (1 - 2023-2 5 season) 2024 DEPRESSION SCREENING 07/23/2024 INFLUENZA VACCINE (Season Ended) 2025 ZOSTER VACCINE (1 of 2) 2053 HIB VACCINE Aged Out No longer eligi ble based on patient's age to complete this topic MENINGOCOCCAL GROUPS A/C/Y/W VACCINE Aged Out No longer eligible b ased on patient's age to complete this topic PNEUMOCOCCAL VACCINE Aged Out No long er eligible based on patient's age to complete this topic Insurance [facility] Care Teams User Experience Architect Relationship Specialty Start Date End Date Enma Corral MD [address] [place] [address] PCP - General Pediatrics 03/27/17
[2024-11-06 07:31] LABS: Basophils Absolute Auto 0.1 K/mm3 (0.0-0.1); Basophils Percent Auto 0.4 % (0.2-1.2); Eosinophils Absolute Auto 0.4 K/mm3 (0-0.3); Eosinophils Percent Auto 2.6 % (0-4.4); Hemoglobin 13.7 g/dL (12.0-15.0); Immature Granulocyte Absolute 0.05 K/mm3 (0.00-0.031); Immature Granulocyte Percent A 0.4 % (0-0.5); Lymphocytes Absolute Auto 2.41 K/mm3 (0.9-3.2); Lymphocytes Percent Auto 17.1 % (18.3-44.2); Mean Corpuscular HGB Conc 31.9 g/dl (32-36); Mean Corpuscular Hemoglobin 29.5 pg (26-34); Mean Corpuscular Volume 92.7 fl (80-100); Mean Platelet Volume 9.5 fl (7.4-10.4); Monocytes Absolute Auto 0.6 K/mm3 (0.1-0.6); Neutrophils Absolute Auto 10.6 K/mm3 (1.3-6.7); Neutrophils Percent Auto 75.5 % (45.5-73.1); Platelet Count Result 351 k/mm3 (150-375); Red Blood Count 4.64 M/mm3 (4.2-5.4); Red Cell Distribution Width 13.5 % (11.5-14.5); White Blood Count 14.1 K/mm3 (4.5-10.0)
[2024-11-06 07:46] LABS: Alanine Aminotransferase 16 U/L (6-35); Albumin Level 4.1 g/dL (3.5-5.1); Alkaline Phosphatase 46 U/L (38-126); Anion Gap 11 mmol/L (4-12); Aspartate Amino Transferase 18 U/L (14-36); Bilirubin,Total 0.3 mg/dL (0.2-1.3); Blood Urea Nitrogen 12 mg/dL (7-17); CRP 2.7 mg/dL (<1.0); Carbon Dioxide 21 mmol/L (22-30); Chloride 104 mmol/L (98-107); Estimated Glomerular Filt Rate > 60; Glucose 99 mg/dL (65-110); Potassium 4.6 mmol/L (3.4-5.0); Sodium 136 mmol/L (137-145)
[2024-11-06 08:18] LABS: Erythrocyte Sedimentation Rate 12 mm/hr (0-20)
[2024-11-08 10:33] LABS: TSH QUEST 0.46 mIU/L
== END 2024-11-06 07:04 | disposition home or self-care (01) ==
LOC: ANHLAB 07:07
PROVIDERS: Visit Provider Physician Assistant
DX: R23.2 Flushing (principal)
CPT/HCPCS: 36415; 80053; 84443; 85025; 85652; 86140

== ENCOUNTER 2025-03-09 17:31 | Emergency (ER) | payer OTHER, SELFPAY ==
--- NOTE | ~2025-03-09 | XR_ITS ---
LUMBAR SPINE INDICATION: Status post recent fall. TECHNIQUE: 3 views lumbar spine COMPARISON: None FINDINGS: No fracture, subluxation or dislocation. No evidence for spondylolysis or spondylolisthesi s. Vertebral bodies and disk spaces are preserved. There is a right pseudoarticulation at L5-S1. IMPRESSION: 1: No significant abnormality of the lumbar spine identified. Reviewed, dictated and finalized at location A.
--- OUTSIDE RECORDS SUMMARY | 2025-03-09 17:33 | XMS_ITS | Clinical Summary ---
Author Organization [address] Address [address] [place] [address] [place] [address] Care Team Providers Care Technical Sales Advisor Name Role Phone Shelby Greer Primary Care Provider [phone] Allergies Active Allergy Reactions Criticality Noted Date Comments Adhesive Tape-Silicones Rash Medium 04/21/2022 Azithromycin Rash,Urticaria Medium 04/03/2017 Gulitgyk-Jvmdqidrvw-Oulmojfdy Urticaria Medium 2016 Medications chlorhexidine (PERIDEX) 0.12 [...] (two) times a day 06/23/20 24 Active aluminum chloride (DRYSOL) 20 % external solutionIndicati ons:Hyperhidrosi s Apply topically nightly To the affected area. Wash off in the morning. 35 mL 08/28/19 25 Active methylPREDNISolo ne (MEDROL DOSEPACK) 4 mg Dosepack Take as directed on package. 21 tablet 10/24/19 25 Active spironolactone (ALDACTONE) 25 mg tabletIndication s:Acne vulgaris Take 1 tablet (25 mg total) by mouth daily 90 tablet 12/30/19 25 Active sertraline (ZOLOFT) 100 mg tabletIndication s:CARMELINA (generalized anxiety disorder) TAKE 1 TABLET BY MOUTH EVERY DAY 90 tablet 1 02/20/20 25 Active lisdexamfetamine (VYVANSE) 40 mg capsuleIndicatio ns:Attention deficit hyperactivity disorder (ADHD), predominantly inattentive type Take 1 capsule (40 mg total) by mouth every morning 30 capsule 03/09/20 25 Active sertraline (ZOLOFT) 100 mg tabletIndication s:CARMELINA (generalized anxiety disorder) Take 1 tablet (100 mg total) by mouth daily 90 tablet 1 08/28/19 25 025 Discontinued lisdexamfetamine (VYVANSE) 40 mg capsuleIndicatio ns:Attention deficit hyperactivity disorder (ADHD), predominantly inattentive type Take 1 capsule (40 mg total) by mouth every morning 30 capsule 02/05/20 25 025 Discontinued(R eorder) Active Problems Problem Noted Date Diagnosed Date Morbid obesity with BMI of 45.0-49.9, adult 12/2024 Assessment & Plan (08/28/2024 2:58 PM STEAM AND GAS TURBINES ASSEMBLER): Reviewed BMI Focus on healthy diet options Work on healthy changes Menorrhagia 02/07/2024 Assessment & Plan (02/08/2024 9:17 AM CDT): Chronic. Managed by gynecology with Sonja and PANKAJ. Depressive disorder 11/21/2023 Assessment & Plan (08/28/2024 2:58 PM STEAM AND GAS TURBINES ASSEMBLER): Chronic and not controlled. Increase Zoloft to 100 mg daily. Follow-up in 1 month for recheck or sooner if needed. Assessment & Plan (02/08/2024 9:17 AM CDT): Chronic. See above. Acne vulgaris 09/21/2023 Assessment & Plan (08/28/2024 2:57 PM STEAM AND GAS TURBINES ASSEMBLER): Chronic. No longer sees Dermatology. We discussed trial of spironolactone to help with acne. She was recently diagnosed with insulin resistance, and I think PCOS is also possibility. We discussed side effects. Patient agreeable. Will follow-up in 1 month for recheck. Check BMP at that time. Assessment & Plan (02/08/2024 9:43 AM CDT): Chronic and controlled with rjbt-qom-xvamkiz treatments. Continue current care. Assessment & Plan (09/21/2023 8:30 AM STEAM AND GAS TURBINES ASSEMBLER): Chronic. Currently using clindamycin solution and chlorhexidine as needed. Patient will let me know when she needs refills. Continue current management. CARMELINA (generalized anxiety disorder) 09/21/2023 Assessment & Plan (08/28/2024 2:58 PM STEAM AND GAS TURBINES ASSEMBLER): See above. Assessment & Plan (02/08/2024 9:44 AM CDT): Patient is doing well with her sertraline 75 mg right now. Will wait and see how she does with her new job. If needed we can increase to 100 mg. She will update me via [employer] to let me know how she is doing. Assessment & Plan (09/21/2023 8:31 AM STEAM AND GAS TURBINES ASSEMBLER): Chronic. Not currently controlled. Patient interested in increasing her medication. Will increase Zoloft to 75 mg daily. Will plan to follow-up in 4-6 weeks if symptoms are still uncontrolled and can continue to titrate dose as needed. Patient voiced agreement with this plan. All questions answered. Attention deficit hyperactiv ity disorder (ADHD), predominantly inattentive type 09/21/2023 Assessment & Plan (08/28/2024 2:58 PM STEAM AND GAS TURBINES ASSEMBLER): Chronic. Symptoms are still uncontrolled. Will increase [...] needed. Assessment & Plan (09/21/2023 8:32 AM STEAM AND GAS TURBINES ASSEMBLER): Chronic. Currently doing well on Vyvanse 20 mg daily. Continue current management. Patient will let me know when she is due for refill. Follow-up 6 months or sooner as needed. Routine adult health maintenance 09/20/2023 Overview (02/07/2024): Health Maintenance: -PCV20: N/A -Tdap vaccine: 2015 -Influenza vaccine: 2022 -Shingles vaccine: N/A -Colonoscopy: N/A -Last WWE: @21 -Last Mammogram: N/A -Last DEXA: N/A -Last eye exam: N/A -Last MHA: N/A Assessment & Plan (02/08/2024 9:44 AM CDT): Health Maintenance: -PCV20: N/A -Tdap vaccine: 2015 -Influenza vaccine: 2022 -Shingles vaccine: N/A -Colonoscopy: [...] changes Assessment & Plan (09/21/2023 8:30 AM STEAM AND GAS TURBINES ASSEMBLER): Reviewed BMI Focus on healthy diet options [...] on file Legal Sex Female 4:27 AM STEAM AND GAS TURBINES ASSEMBLER Gender Identity Female 09/21/2023 9:06 AM STEAM AND GAS TURBINES ASSEMBLER Sexual Orientation Straight 02/01/2024 8: 48 AM [...] 02/17/2025 02/17/2015, 06/08/2008, 12/02/2004, Additional history exists Influenza Vaccine (#1) 2025 , 05/04/2023, 05/05/2022, Additional history exists Depression Screening 08/28/2025 08/28/2024, 08/28/2024, 09/21/2023, Additional history exists Hepatitis B Screening Completed 04/29/2004 , 2003, 2003 Pneumococcal vaccine <65 Completed 004, 02/26/2004, 2003, Additional history exists Varicella Vaccines Completed 02/17/2015, 06/06/2004 HPV Vaccines Completed 02/26/2018, 05/23, 02/20/2017 Meningococcal Vaccine Completed 02/26/2021 , 04/01/2015, 06/28/2005 Covid-19 Vaccine Completed 04/25/2024, , 05/24/2022, Additional [place] [address] [facility] Address: [facility] [address] [place] [address] Care Teams Technical Sales Advisor Relationship Specialty Start Date End Date Shelby Greer PA [address] [place] [phone] PCP - General Family Medicine 09/10/23
--- OUTSIDE RECORDS SUMMARY | 2025-03-09 17:33 | XMS_ITS | Clinical Summary ---
Author Organization [facility] Care Team Providers Care Technical Artist Name Role Phone Unavailable Primary Care Provider Unavailabl e Social History Tobacco Use Types Packs/Day Years Used Date Smoking Tobacco: Never Assessed Comments Unknown Sex and Gender Information Value Date Recorded Sex Assigned at Not on file Legal Sex Female 7:20 AM EMERGENCY VEHICLE OPERATIONS INSTRUCTOR Gender Identity Not on file Sexual Orientation [...] season) 2024 06/11/2021, 11/06/2020, 10/16/2020 Influenza Immunization (#1) 03/23/202504/23, 05/05/2020, 04/01/2019 Respiratory Syncytial Virus (RSV) Immunization [...]
--- OUTSIDE RECORDS SUMMARY | 2025-03-09 17:33 | XMS_ITS | Clinical Summary ---
Author Organization [facility] Address [address] [place] [address] Care Team Providers Care Welder Gun Name Role Phone Unavailable Primary Care Provider [...]
--- OUTSIDE RECORDS SUMMARY | 2025-03-09 17:33 | XMS_ITS | Clinical Summary ---
Author Organization [facility] Address [address] [place] [address] Care Team Providers Care Seed Laboratory Assistant Name Role Phone Unavailable Primary Care Provider Unavailabl e Allergies Active Allergy Reactions Criticality Noted Date Comments Adhesive Tape-Silicones Rash Low 04/21/2022 Azithromycin Rash Low 04/21/2022 Medications methylphenidate HCl (CONCERTA) 36 mg Extended Release tablet Take 1 tablet by mouth every day after a meal 30 Tablet 07/21/2022 Active Encounters Date Type Department Care Team Description 02/04/2025 External Device Data [facility] Provider, Abstract 02/03/2025 External Device Data [facility] Provider, Abstract 01/06/2025 External Device Data [facility] Provider, Abstract 12/11/2024 External Device Data [facility] Provider, Abstract 12/11/2024 External Device Data [facility] Provider, Abstract 12/10/2024 External Device Data [facility] Provider, Abstract 12/09/2024 External Device Data [facility] Provider, Abstract [...] of 3 - 19+ 3-dose series) 05/23 CERVICAL CANCER SCREENING 2024 HPV/Cotest (21-29) 2024 PAP SMEAR 2024 INFLUENZA VACCINE (#1) 2025 Insurance RX [facility] [employer]
--- OUTSIDE RECORDS SUMMARY | 2025-03-09 17:33 | XMS_ITS | Clinical Summary ---
Author Organization [facility] Address [address] [place] [address] Care Team Providers Care Supervisor [place] Name Role Phone Enma Corral MD Primary Care Provider [phone] [facility],non-owned Affiliates and Associated Physician Practices is amultiple site organization consisting of ambulatory clinics and hospital sitesin [place], [place], [place] and [place]. This disclosure is being madepursuant to the Care Everywhere program and may not contain all information available regarding this patient. Last updated 18.[facility] [employer] Allergies Active Allergy Reactions Criticality Noted Date Comments Tudlrtxr-Glkievbmsn-Kapfuxsbk Urticaria Medium 2016 Azithromycin Urticaria Medium 04/03/2017 [...] 3:58 PM CDT Height 165.2 cm (5' 5.04) 04/12/2018 3:58 PM CD T Body Mass [...] season) 2024 DEPRESSION SCREENING 07/23/2024 INFLUENZA VACCINE (#1) 2025 ZOSTER VACCINE (1 of 2) 2053 HIB VACCINE Aged Out No longer eligi ble based on patient's age to complete this topic MENINGOCOCCAL GROUPS A/C/Y/W VACCINE Aged Out No longer eligible b ased on patient's age to complete this topic PNEUMOCOCCAL VACCINE Aged Out No long er eligible based on patient's age to complete this topic Insurance [facility] Care Teams Supervisor [place] Relationship Specialty Start Date End Date Enma Corral MD [address] [place] [address] PCP - General Pediatrics 03/27/17
--- OUTSIDE RECORDS SUMMARY | 2025-03-09 17:33 | XMS_ITS | Continuity of Care Document ---
Author Organization [employer] [place] Address [address] [place] [address] [address] [place] [address] Phone Care Team Providers Care Striper Spray Gun Name Role Phone Magan Hinson PT Unavailable [...] Diagnoses Date Provider Providers Copied on Encounter [facility] [address] [facility], [place], [place], [id number], tel:[phone] [place] No Information 0- 7 Dellamano Magan. . Referring Provider: Osvaldo Murdock, [place], [address]. tel:[phone] [facility] [address], [place], [place], [address], [place] tel:[phone] [place] No Information 7 Dellamano Magan. . Referring Provider: Osvaldo Murdock, [address] [place], [address]. tel:[phone] [facility] [address], [place], [place], [address], tel:[phone] Ket[place] No Information 3 7 Dellamano Magan. . Referring Provider: Osvaldo Murdock, [address] [facility] [place], [address]. tel:[phone] [facility] [address], [place], [place], [address], tel:[phone] [place] No Information 7 Dellamano Magan. . Referring Provider: Osvaldo Murdock, [address] [place], [address]. tel:[phone] [facility] [address], [place], [place], [address], [place] tel:[phone] [place] No Information 7 Dellamano Magan. . Referring Provider: Osvaldo Murdock, [address] [facility] [place], [address]. tel:[phone] [facility] [address], [place], [place], [address], [place] tel:[phone] [place] No Information Oct-0 9-201 7 Dellamano Magan. . Referring Provider: Osvaldo Murdock, [address], [place], [address]. tel:[phone] [facility] [address], [place], [place], [address], [place] tel:[phone] [place] No Information Oct-0 2-201 7 Dellamano Magan. . Referring Provider: Osvaldo Murdock, [address], [place], [address]. tel:[phone] [facility] [address], [place], [place], [address], [place] tel:[phone] [place] No Information Sep-2 8-201 7 Dellamano Magan. . Referring Provider: Osvaldo Murdock, [address], [place], [address]. tel:[phone] [facility] [address], [place], [place], [address], [place] tel:[phone] [place] No Information Sep-2 6-201 7 Dellamano Magan. . Referring Provider: Osvaldo Murdock, [address], [place], [address]. tel:[phone] [facility] [address], [place], [place], [address], [place] tel:[phone] [place] No Information Sep-2 5-201 7 Dellamano Magan. . Referring Provider: Osvaldo Murdock, [address], [place], [address]. tel:[phone] [facility] [address], [place], [place], [address], [place] tel:[phone] [place] No Information Sep-2 1-201 7 Dellamano Magan. . Referring Provider: Osvaldo Murdock, [address], [place], [address]. tel:[phone] [facility] [address], [place], [place], [address], tel:[phone] [place] No Information Sep- [facility]. . Referring Provider: Osvaldo Murdock, [address], [place], [address]. tel:[phone] [facility] [address] [facility] [address], [place], [place], [address], tel:[phone] [place] No Information Sep- [facility] Magan. . Referring Provider: Osvaldo Murdock, [address], [place], [address]. tel:[phone] [facility] [address] [facility] [address], [place], [place], [address], tel:[phone] [place] Stiffness of right knee, not elsewhere classifiedMuscle weakness (generalized)Unsp ecified abnormalities of gait and mobilityPain in right knee Sep- [facility] Magan. . Referring Provider: Osvaldo Murdock, [address], [place], [address]. tel:[phone] Family History Family Member Type Diagnosis Age At Onset No Information Payers Payer name Insurance type Covered constitution party ID Rakesh galvez(s) R CI [id number] Social History Type Description Quantity Date Captured [...]
--- OUTSIDE RECORDS SUMMARY | 2025-03-09 17:35 | XMS_ITS | Continuity of Care Document ---
Author Organization [employer] [place] Address [address] [place] [address] [address] [place] [address] Phone Care Team Providers Care Clinical Education Assistant Name Role Phone Magan Hinson PT Unavailable [...] Diagnoses Date Provider Providers Copied on Encounter [facility] [address] [facility] [facility], [place], [place], [id number], tel:[phone] [place] No Information 0- 7 Dellamano Magan. . Referring Provider: Osvaldo Murdock, [place], [address]. tel:[phone] [facility] [address], [place], [place], [address], [place] tel:[phone] [place] No Information 7 Dellamano Magan. . Referring Provider: Osvaldo Murdock, [address] [place], [address]. tel:[phone] [facility] [address], [place], [place], [address], tel:[phone] [place] No Information 3 7 Dellamano Magan. . Referring Provider: Osvaldo Murdock, [address] [facility] [place], [address]. tel:[phone] [facility] [address], [place], [place], [address], tel:[phone] [place] No Information 7 Dellamano Magan. . Referring Provider: Osvaldo Murdock, [address] [place], [address]. tel:[phone] [facility] [address], [place], [place], [address], [place] tel:[phone] [place] No Information 7 Dellamano Magan. . Referring Provider: Osvaldo Murdock, [address] [facility] [place], [address]. tel:[phone] [facility] [address], [place], [place], [address], [place] tel:[phone] [place] No Information Oct-0 9-201 7 Dellamano Magan. . Referring Provider: Osvaldo Murdock, [address], [place], [address]. tel:[phone] [facility] [address], [place], [place], [address], [place] tel:[phone] [place] No Information Oct-0 2-201 7 Dellamano Magan. . Referring Provider: Osvaldo Murdock, [address], [place], [address]. tel:[phone] [facility] [address], [place], [place], [address], [place] tel:[phone] [place] No Information Sep-2 8-201 7 Dellamano Magan. . Referring Provider: Osvaldo Murdock, [address], [place], [address]. tel:[phone] [facility] [address], [place], [place], [address], [place] tel:[phone] [place] No Information Sep-2 6-201 7 Dellamano Magan. . Referring Provider: Osvaldo Murdock, [address], [place], [address]. tel:[phone] [facility] [address], [place], [place], [address], [place] tel:[phone] [place] No Information Sep-2 5-201 7 Dellamano Magan. . Referring Provider: Osvaldo Murdock, [address], [place], [address]. tel:[phone] [facility] [address], [place], [place], [address], [place] tel:[phone] [place] No Information Sep-2 1-201 7 Dellamano Magan. . Referring Provider: Osvaldo Murdock, [address], [place], [address]. tel:[phone] [facility] [address], [place], [place], [address], tel:[phone] [place] No Information Sep- [facility]. . Referring Provider: Osvaldo Murdock, [address], [place], [address]. tel:[phone] [facility] [address] [facility] [address], [place], [place], [address], tel:[phone] [place] No Information Sep- [facility]. . Referring Provider: Osvaldo Murdock, [address], [place], [address]. tel:[phone] [facility] [address] [facility] [address], [place], [place], [address], tel:[phone] [place] Stiffness of right knee, not elsewhere classifiedMuscle weakness (generalized)Unsp ecified abnormalities of gait and mobilityPain in right knee Sep- [facility]. . Referring Provider: Osvaldo Murdock, [address], [place], [address]. tel:[phone] Family History Family Member Type Diagnosis Age At Onset No Information Payers Payer name Insurance type Covered libertarian ID Rakesh galvez(s) R CI [id number] Social History Type Description Quantity Date Captured [...]
[2025-03-09 17:43] VITALS: BP 142/82; PULSE 93; RESP 18; TEMP 36.3; O2SAT 98
--- NOTE | 2025-03-09 19:12 | ED_ITS ---
HPI - Back Pain/Injury General Chief Complaint: Back Pain/Injury Stated Complaint: Fall / Back Pain Time Seen by Provider: 03/09/25 18:33 Source: patient and RN notes reviewed Mode of arrival: ambulatory Limitations: no limitations History of Present Illness HPI Narrative: Patient presents today complaining of mid to low back pain into the coccyx after she fell 2 days ago at home. She slipped and fell on some steps at her home and slid down them injuring her mid back to the buttock area bilaterally. Denies numbness, but reports some mild tingling in the low back. Denies radiation of the pain, loss of bowel or bladder control. Currently rates her pain 12/30 and has taken ibuprofen and Tylenol without improvement. Related Data Home Medications ?Medication ?Instructions ?Recorded ?Confirmed ?Last Taken ?Type drospirenone 3 mg-ethinyl tablet 09/16/20 Unknown History estradiol 0.02 mg tablet drospirenone 3 mg-ethinyl tablet 09/16/20 Unknown History estradiol 0.02 mg tablet (Dory (28)) ibuprofen 200 mg capsule 200 mg PO Q6H PRN Pain 09/16/20 Unknown History methylphenidate HCl 36 mg mg PO 09/16/20 Unknown History tablet,extended release 24 hr lisdexamfetamine 40 mg capsule mg 03/09/25 Unknown History metformin 500 mg tablet,extended mg PO 03/09/25 Unknown History release 24 hr sertraline 100 mg tablet mg 03/09/25 Unknown History spironolactone 25 mg tablet mg 03/09/25 Unknown History Allergies Allergy/AdvReac Type Severity Reaction Status Date / Time azithromycin Allergy Mild Hives Verified 03/09/25 18:00 Cephalosporins Allergy Mild Hives Verified 03/09/25 18:00 PMFSH Social History Social History Gender identity (if verbalized by the patient): Female Comments At time of signature, I have reviewed and agree with nursing past medical, surgical, social and family history unless otherwise noted. Please see nursing chart for further information. There is no relevant family history pertinent to the presenting complaint Exam Narrative: GENERAL: Well-appearing, well-nourished, and in no acute distress. HEAD: Normocephalic, atraumatic. EYES: EOMI. No redness or drainage. Conjunctivae normal. ENT: Mucous membranes pink and moist. NECK: Normal AROM. CHEST: No respiratory distress. MUSCULOSKELETAL: Midline tenderness of the lower T-spine extending to the low L-spine and coccyx without ecchymosis, step-off, crepitus noted. Bilateral paraspinal muscle tenderness associated with the areas of midline tenderness to the low T-spine extending to the lower L-spine. Patient has an area of ecchymosis to the right buttock as well. Distal sensation intact bilaterally. Saddle sensation intact. Capillary refill normal. Bilateral pedal and radial pulses normal. Hand cardiac rehabilitation specialist equal and strong. 5/5 strength in BLE. 2+ patellar reflexes bilaterally. EXTREMITIES: Normal range of motion. No edema. SKIN: Warm, dry, no rash. Capillary refill normal. Normal skin turgor. NEURO: No focal deficits. Alert and oriented x3. Gait steady. PSYCH: Normal affect. No signs of depression or anxiety. Course Course Level of Care: Express Care Visit Vital Signs Vital signs: Vital Signs Temperature 97.3 F L 03/09/25 17:43 Pulse Rate 93 03/09/25 17:43 Respiratory Rate 18 03/09/25 17:43 Blood Pressure 142/82 H 03/09/25 17:43 Pulse Oximetry 98 03/09/25 17:43 Oxygen Delivery Room Air 03/09/25 17:43 Temperature 97.3 F L 03/09/25 17:43 Pulse Rate 93 03/09/25 17:43 Respiratory Rate 18 03/09/25 17:43 Blood Pressure 142/82 H 03/09/25 17:43 Pulse Oximetry 98 03/09/25 17:43 Oxygen Delivery Room Air 03/09/25 17:43 Reviewed MDM - Back Pain/Injury MDM Narrative Medical decision making narrative: 19-year-old female patient presents today after slipping and falling down 5 stairs at home injuring her back from low T-spine to low L-spine extending to the coccyx. She has been taking ibuprofen and Tylenol at home without improvement. Upon exam, patient has some midline tenderness in the low T-spine to the coccyx and some bilateral paraspinal muscle tenderness to the same area with an area of ecchymosis to the right buttock. Neurovascularly intact bilaterally. L-spine x-rays normal. Recommend continuing NSAIDs. Prescription for Flexeril sent to pharmacy. Recommend PCP follow-up in 1-2 weeks if symptoms are not improving. Patient agrees with plan. Vital signs stable. Anticipatory guidance given. Differential Diagnosis Differential diagnosis: Likely strain of lumbar region, thoracic back pain and other (Contusion, compression fracture, bulging disc) Imaging Data Radiologist's impression: ITS Impressions Lumbar Spine X-Ray 03/09/25 18:59 IMPRESSION: 1: No significant abnormality of the lumbar spine identified. Critical Care Time Critical Care Time Critical Care Time: No Discharge Plan Discharge Clinical Impression: Contusion of lower back and pelvis, initial encounter Patient Disposition: Home Condition: Stable Instructions: Acute Low Back Pain (ED) Additional Instructions: Your spinal x-ray is negative. Please continue the ibuprofen at home. Use a heating pad to help relax your muscles. Take the cyclobenzaprine as prescribed. Do not drive within 8 hours of taking it as it can make you drowsy. Follow-up with your PCP in 1-2 weeks if symptoms are not improving. Your blood pressure was elevated above 120/80 today at Urgent Care. This puts you above the threshold for follow up. Please schedule a followup visit with your personal physician as soon as possible, for further evaluation and treatment. Even blood pressure exceeding 120/80 may indicate pre-hypertension. Patient Language: Togolese Prescriptions: New cyclobenzaprine 10 mg tablet 10 mg PO TID PRN (Reason: muscle spasm) Qty: 20 0RF No Action metformin 500 mg tablet extended release 24 hr PO lisdexamfetamine 40 mg capsule sertraline 100 mg tablet spironolactone 25 mg tablet ibuprofen 200 mg Capsule 200 mg PO Q6H PRN (Reason: Pain) methylphenidate HCl 36 mg tablet extended release 24hr PO drospirenone-ethinyl estradiol [Gianvi (28)] 3-0.02 mg tablet drospirenone-ethinyl estradiol 3-0.02 mg tablet Follow-up/Referrals: Percy,RADAMES Merchant [Primary Care Provider] - Time of Disposition: 19:19
== END 2025-03-09 19:22 | disposition home or self-care (01) ==
PROVIDERS: Emergency Provider Nurse Practitioner; PCP Physician Assistant
DX: S30.0XXA Contusion of lower back and pelvis, initial encounter (principal); W10.9XXA Fall (on) (from) unspecified stairs and steps, initial encounter; R73.03 Prediabetes; F90.9 Attention-deficit hyperactivity disorder, unspecified type; F41.9 Anxiety disorder, unspecified; F32.A Depression, unspecified
CPT/HCPCS: 72100; 99213; G0463

== ENCOUNTER 2025-03-21 11:43 | Outpatient (CLI) | payer OTHER, SELFPAY ==
--- OUTSIDE RECORDS SUMMARY | 2017-05-21 12:00 | XMS_ITS | Continuity of Care Document ---
Author Organization [employer] [facility] Address [address] [place] [address] [address] [place] [address] Phone Care Team Providers Care Stereotype Molder Name Role Phone Magan Hinson PT Unavailable [...] Diagnoses Date Provider Providers Copied on Encounter [facility] [address], [place], [place], [id number], tel:[phone] [place] No Information 0- 7 Dellamano Magan. . Referring Provider: Osvaldo Murdock, [place], [address]. tel:[phone] [facility] [address], [place], [place], [id number], [place] tel:[phone] [place] No Information 7 Dellamano Magan. . Referring Provider: Osvaldo Murdock, [address] [place], [address]. tel:[phone] [facility] [address], [place], [place], [address], tel:[phone] [place] No Information 3 7 Dellamano Magan. . Referring Provider: Osvaldo Murdock, [address] [facility] [place], [address]. tel:[phone] [facility] [address], [place], [place], [address], tel:[phone] [place] No Information 7 Dellamano Magan. . Referring Provider: Osvaldo Murdock, [address] [place], [address]. tel:[phone] [facility] [address], [place], [place], [address], [place] tel:[phone] [place] No Information 7 Dellamano Magan. . Referring Provider: Osvaldo Murdock, [address] [facility] [place] [place], [address]. tel:[phone] [facility] [address], [place], [place], [address], [place] tel:[phone] [place] No Information Oct-0 9-201 7 Dellamano Magan. . Referring Provider: Osvaldo Murdock, [address], [place], [address]. tel:[phone] [facility] [address], [place], [place], [address], [place] tel:[phone] [place] No Information Oct-0 2-201 7 Dellamano Magan. . Referring Provider: Osvaldo Murdock, [address], [place], [address]. tel:[phone] [facility] [address], [place], [place], [address], [place] tel:[phone] [place] No Information Sep-2 8-201 7 Dellamano Magan. . Referring Provider: Osvaldo Murdock, [address], [place], [address]. tel:[phone] [facility] [address], [place], [place], [address], [place] tel:[phone] [place] No Information Sep-2 6-201 7 Dellamano Magan. . Referring Provider: Osvaldo Murdock, [address], [place], [address]. tel:[phone] [facility] [address], [place], [place], [address], [place] tel:[phone] [place] No Information Sep-2 5-201 7 Dellamano Magan. . Referring Provider: Osvaldo Murdock, [address], [place], [address]. tel:[phone] [facility] [address], [place], [place], [address], [place] tel:[phone] [place] No Information Sep-2 1-201 7 Dellamano Magan. . Referring Provider: Osvaldo Murdock, [address], [place], [address]. tel:[phone] [facility] [address], [place], [place], [address], tel:[phone] [place] No Information Sep- [facility]an. . Referring Provider: Osvaldo Murdock, [address], [place], [address]. tel:[phone] [facility] [address] [facility] [address], [place], [place], [address], tel:[phone] [place] No Information Sep- [facility] Magan. . Referring Provider: Osvaldo Murdock, [address], [place], [address]. tel:[phone] [facility] [address] [facility] [address], [place], [place], [address], tel:[phone] [place] Stiffness of right knee, not elsewhere classifiedMuscle weakness (generalized)Unsp ecified abnormalities of gait and mobilityPain in right knee Sep- [facility] Magan. . Referring Provider: Osvaldo Murdock, [address], [place], [address]. tel:[phone] Family History Family Member Type Diagnosis Age At Onset No Information Payers Payer name Insurance type Covered democrat ID Rakesh galvez(s) R CI [id number] Social History Type Description Quantity Date Captured [...]
--- OUTSIDE RECORDS SUMMARY | 2025-03-21 11:46 | XMS_ITS | Clinical Summary ---
Author Organization [facility] Address [address] [place] [address] Care Team Providers Care Nurse Manager Name Role Phone Enma Corral MD Primary Care Provider [phone] Source Comments [facility],non-owned Affiliates and Associated Physician Practices is amultiple site organization consisting of ambulatory clinics and hospital sitesin [place], [place], [place] and [place]. This disclosure is being madepursuant to the Care Everywhere program and may not contain all information available regarding this patient. Last updated 18.[facility] ticketea Allergies Active Allergy Reactions Criticality Noted Date Comments Ffvcepfg-Urbgxctjrh-Qbjyeoqna Urticaria Medium 2016 Azithromycin Urticaria Medium 04/03/2017 [...] patient's age to complete this topic Insurance [facility] Care Teams Nurse Manager Relationship Specialty Start Date End Date Enma Corral MD [address] [place] [address] PCP - General Pediatrics 03/27/17
--- OUTSIDE RECORDS SUMMARY | 2025-03-21 11:46 | XMS_ITS | Clinical Summary ---
Author Organization [address] Address [address] [place] [address] [place] [address] Care Team Providers Care Farm Field Manager Name Role Phone Shelby Greer Primary Care Provider [phone] Allergies Active Allergy Reactions Criticality Noted Date Comments Adhesive Tape-Silicones Rash Medium 04/21/2022 Azithromycin Rash,Urticaria Medium 04/03/2017 Rjngboqt-Jehcseulql-Dsefijxdo Urticaria Medium 2016 Medications chlorhexidine (PERIDEX) 0.12 % solution 07/24/19 24 Active clindamycin (CLEOCIN T) 1 % external solution 08/04/19 24 Active Vestura, 28, 3-0.02 mg per tablet Take 1 tablet by mouth daily 09/17/19 24 Active ondansetron (ZOFRAN) 4 mg tablet Take by mouth 07/24/19 24 Active PreviDent 5000 Sensitive 1.1-5 % paste USE DIRECTED TWICE DAILY TO BRUSH 07/31/19 24 Active PreviDent 5000 Plus 1.1 % cream 2 (two) times a day 06/23/20 24 Active aluminum chloride (DRYSOL) 20 % external solutionIndicati ons:Hyperhidrosi s Apply topically nightly To the affected area. Wash off in the morning. 35 mL 08/28/19 25 Active spironolactone (ALDACTONE) 25 mg tabletIndication [...] every morning 30 capsule 03/09/20 25 Active cyclobenzaprine (FLEXERIL) 10 mg tablet TAKE 1 TABLET BY MOUTH THREE TIMES A DAY NEEDED FOR MUSCLE SPASM 03/09/20 25 Active metFORMIN XR (GLUCOPHAGE XR) 500 mg 24 hr tablet TAKE 1 TABLET BY MOUTH EVERY DAY FOR 1 WEEK THEN INCREASE TO TWICE A DAY 08/12/19 25 025 Discontinued(T herapy completed) methylPREDNISolo ne (MEDROL DOSEPACK) 4 mg Dosepack Take as directed on package. 21 tablet 10/24/19 25 025 Discontinued lisdexamfetamine (VYVANSE) 40 mg capsuleIndicatio ns:Attention deficit hyperactivity disorder (ADHD), predominantly inattentive type Take 1 capsule (40 mg total) by mouth every morning 30 capsule 02/05/20 25 025 Discontinued(R eorder) Active Problems Problem Noted Date Diagnosed Date Hyperhidrosis 03/13/2025 Assessment & Plan (03/18/2025 4:00 PM CDT): Class 3 severe obesity witho ut serious comorbidity with body mass index (BMI) of 50.0 to 59.9 in adult 08/28/2024 Assessment & Plan (03/18/2025 4:00 PM CDT): Assessment & Plan (08/28/2024 2:58 PM HEAT TREATER): Reviewed BMI Focus on healthy diet options Work on healthy changes Menorrhagia 02/07/2024 Assessment & Plan (03/18/2025 4:00 PM CDT): Orders: DHEA-sulfate; Future Lipid panel; Future Total testosterone; Future 17-Hydroxyprogesterone; Future Hemoglobin A1c; Future Assessment & Plan (02/08/2024 9:17 AM CDT): Chronic. Managed by gynecology with Sonja and CP. Depressive disorder 11/21/2023 Assessment & Plan (03/18/2025 4:00 PM CDT): Assessment & Plan (08/28/2024 2:58 PM HEAT TREATER): Chronic and not controlled. Increase Zoloft to 100 mg daily. Follow-up in 1 month for recheck or sooner if needed. Assessment & Plan (02/08/2024 9:17 AM CDT): Chronic. See above. Acne vulgaris 09/21/2023 Assessment & Plan (03/18/2025 4:00 PM CDT): Assessment & Plan (08/28/2024 2:57 PM HEAT TREATER): Chronic. No longer sees Dermatology. We discussed trial of spironolactone to help with acne. She was recently diagnosed with insulin resistance, and I think PCOS is also possibility. We discussed side effects. Patient agreeable. Will follow-up in 1 month for recheck. Check BMP at that time. Assessment & Plan (02/08/2024 9:43 AM CDT): Chronic and controlled with jyea-epx-nqiemem treatments. Continue current care. Assessment & Plan (09/21/2023 8:30 AM HEAT TREATER): Chronic. Currently using clindamycin solution and chlorhexidine as needed. Patient will let me know when she needs refills. Continue current management. CARMELINA (generalized anxiety disorder) 09/21/2023 Assessment & Plan (03/18/2025 4:00 PM CDT): Assessment & Plan (08/28/2024 2:58 PM HEAT TREATER): See above. Assessment & Plan (02/08/2024 9:44 AM CDT): Patient is doing well with her sertraline 75 mg right now. Will wait and see how she does with her new job. If needed we can increase to 100 mg. She will update me via [employer] to let me know how she is doing. Assessment & Plan (09/21/2023 8:31 AM HEAT TREATER): Chronic. Not currently controlled. Patient interested in increasing her medication. Will increase Zoloft to 75 mg daily. Will plan to follow-up in 4-6 weeks if symptoms are still uncontrolled and can continue to titrate dose as needed. Patient voiced agreement with this plan. All questions answered. Attention deficit hyperactiv ity disorder (ADHD), predominantly inattentive type 09/21/2023 Assessment & Plan (03/18/2025 4:00 PM CDT): Assessment & Plan (08/28/2024 2:58 PM HEAT TREATER): Chronic. Symptoms are still uncontrolled. Will increase [...] needed. Assessment & Plan (09/21/2023 8:32 AM HEAT TREATER): Chronic. Currently doing well on Vyvanse 20 mg daily. Continue current management. Patient will let me know when she is due for refill. Follow-up 6 months or sooner as needed. Routine adult health maintenance 09/20/2023 Overview (03/18/2025): Health Maintenance: -PCV20: N/A -Tdap vaccine: 2024 -Influenza vaccine: due in Fall -Shingles vaccine: N/A -Colonoscopy: N/A -Last WWE: with ADMINISTRATIVE STAFF SUPERVISOR -Last Mammogram: N/A -Last DEXA: N/A -Last eye exam: N/A -Last MHA: N/A Assessment & Plan (03/18/2025 4:00 PM CDT): Assessment & Plan (02/08/2024 9:44 AM CDT): [...] changes Assessment & Plan (09/21/2023 8:30 AM HEAT TREATER): Reviewed BMI Focus on healthy diet options Work on healthy changes Encounters Date Type Department Care Team Description 03/18/2025 2:30 PM CDT Office Visit [facility] Family Medicine [address] [place] [phone] Shelby Greer PA Routine adult health maintenance (Primary Dx); Pelvic pain; Menorrhagia with regular cycle; Class 3 severe obesity without serious comorbidity with body mass index (BMI) of 50.0 to 59.9 in adult, unspecified obesity type; Acne vulgaris; Attention deficit hyperactivity disorder (ADHD), predominantly inattentive type; CARMELINA (generalized anxiety disorder); Depressive disorder; Hyperhidrosis; Acute bilateral low back pain without sciatica; Need for vaccination from Last 3 Months Immunizations Immunization Administration [...] 06/06/20 04,02/26/2004,2003,07/31 Polio, Unspecified 06/08/2008, 4,2003,10/01 Tdap 03/18/2025,02/17/2015 Varicella 02/17/2015,06/06/2004 Surgical History Surgery Date Site/Laterality [...] more points, staff should administer the PHQ-9) 1 03/18/2025 PHQ-9 Answer Date Recorded PHQ-9 Total Score 6 03/18/2025 Comments No Sex and Gender Information Value Date Recorded Sex Assigned at Not on file Legal Sex Female 4:27 AM HEAT TREATER Gender Identity Female 09/21/2023 9:06 AM HEAT TREATER Sexual Orientation Straight 02/01/2024 8: 48 AM CDT Obstetrics History Last Filed Vital Signs Vital Sign Reading Time Taken Comments Blood Pressure 120/86 03/18/2025 2:33 PM CDT Pulse 95 03/18/2025 2:33 PM CDT Temperature 36.1 C (96.9 F) 03/18/2025 2:33 PM CDT Respiratory Rate 18 03/18/2025 2:33 PM CDT Oxygen Saturation 99% 03/18/2025 2:33 PM CDT Inhaled Oxygen Concentration - - Weight 123.4 kg (272 lb) 03/18/2025 2:33 PM CDT Height 152.4 cm (5') 03/18/2025 2:33 PM CDT Body Mass Index 53.12 03/18/2025 2:33 PM CDT Plan of Treatment Health Maintenance Due Date Last Done Comments Cervical Cancer Screening 2003 Hepatitis C Screening 2003 Meningococcal B Vaccine (2 o f 2 - Bexsero SCDM 2-dose series) 08/10/2024 02/08/2024, 02/27/2022 Influenza Vaccine (#1) 2025 , 05/04/2023, 05/05/2022, Additional history exists Depression Screening 03/18/2026 03/18/2025, 03/18/2025, 08/28/2024, Additional history exists Regular Well Visit/Exam 18-64 03/18/2026 03/18/2025, 02/08/2024 DTaP/Tdap/Td Vaccine (8 - Td or Tdap) 03/18/2035 03/18/2025, 02/17/2015, 06/08/2008, Additional history exists Hepatitis B Screening Completed 04/29/2004 , 2003, 2003 Pneumococcal vaccine <65 Completed 004, 02/26/2004, 2003, Additional history exists Varicella Vaccines Completed 02/17/2015, 06/06/2004 HPV Vaccines Completed 02/26/2018, 05/23, 02/20/2017 Meningococcal Vaccine Completed 02/26/2021 , 04/01/2015, 06/28/2005 Covid-19 Vaccine Completed 04/25/2024, , 05/24/2022, Additional history exists Insurance [facility] Care Teams Farm Field Manager Relationship Specialty Start Date End Date Shelby Greer PA [address] [place] [place] [phone] PCP - General Family Medicine 09/10/23
--- OUTSIDE RECORDS SUMMARY | 2025-03-21 11:46 | XMS_ITS | Clinical Summary ---
Author Organization [facility] Address [address] [place] [address] Care Team Providers Care Swatch Cutter Name Role Phone Unavailable Primary Care Provider [...]
[2025-03-21 12:41] LABS: Cholesterol 170 mg/dL (0-200); HDL Direct 65 mg/dL; Triglycerides 92 mg/dL (<150)
[2025-03-21 12:52] LABS: Hemoglobin A1C 5.4 % (<5.7)
== END 2025-03-21 11:44 | disposition home or self-care (01) ==
LOC: ANHIMG 11:45
PROVIDERS: PCP Physician Assistant; Visit Provider Physician Assistant
DX: N92.0 Excessive and frequent menstruation with regular cycle (principal)
CPT/HCPCS: 36415; 80061; 82627; 83036; 83498

== ENCOUNTER 2025-04-03 16:38 | Outpatient (CLI) | payer OTHER, SELFPAY ==
--- NOTE | ~2025-04-03 | US_ITS ---
EXAMINATION: US pelvic complete, 04/03/2025 17:33 CDT HISTORY: pelvic pain Comparison: None Technique: Murphy-scale and color Doppler images were obtained. Findings: Uterus: Uterus anteverted 7.6 x 3.3 x 4.5 cm. . Endometrium 1.3 mm. Right Ovary:Right ovary 1 x 1.5 x 2.8 cm, no adnexal mass, normal flow. Left Ovary: Left ovary 1.0 x 2.1 x 2.1 cm, no adnexal mass, normal flow Free Fluid: None Impression: Unremarkable exam Reviewed, dictated and finalized at location A. Impression: Unremarkable exam
== END 2025-04-03 16:39 | disposition home or self-care (01) ==
LOC: ANHIMG 16:39
PROVIDERS: PCP Physician Assistant; Visit Provider Physician Assistant
DX: R10.2 Pelvic and perineal pain (principal)
CPT/HCPCS: 76856

== ENCOUNTER 2025-06-27 07:51 | Outpatient (CLI) | payer OTHER, SELFPAY ==
--- OUTSIDE RECORDS SUMMARY | 2017-05-21 11:00 | XMS_ITS | Continuity of Care Document ---
Author Organization [facility] Address [address] [place] [address] [address] [place] [address] Phone Care Team Providers Care Coronary Clinical Specialist Name Role Phone Magan Hinson PT Unavailable Unavailable Procedures Procedure Date PT Re-evaluation Therapeutic Exercise Therapeutic Exercise Neuromuscular Re-Ed Therapeutic Exercise Neuromuscular Re-Ed Therapeutic Exercise Therapeutic Activities Therapeutic Exercise Neuromuscular Re-Ed Therapeutic Exercise Neuromuscular Re-Ed Therapeutic Exercise Therapeutic Activities Neuromuscular Re-Ed Therapeutic Exercise Therapeutic Activities Neuromuscular Re-Ed Cover Roll Leukotape Therapeutic Exercise Therapeutic Activities Neuromuscular Re-Ed Therapeutic Exercise Therapeutic Activities Neuromuscular Re-Ed Therapeutic Exercise Therapeutic Activities Neuromuscular Re-Ed Therapeutic Exercise Therapeutic Activities Therapeutic Exercise Hot or Cold Pack PT Evaluation Low Complexity Therapeutic Exercise Advance Directives Directive Yes / No Effective Date File Name No Information Encounters Encounter Description Practice Location Reason(s) For Visit Diagnoses Date Provider Providers Copied on Encounter [facility] [address], [place], [place], [id number], tel:[phone] [place] No Information 0- 7 Dellamano Magan. . Referring Provider: Osvaldo Murdock, [address] [place], [address]. tel:[phone] [facility] [address], [place], [place], [address], [place] tel:[phone] [place] No Information 7 Dellamano Magan. . Referring Provider: Osvaldo Murdock, [address] [place], [address]. tel:[phone] [facility] [address], [place], [place], [address], tel:[phone] [place] No Information 3 7 Dellamano Magan. . Referring Provider: Osvaldo Murdock, [address] [facility] [place], [address]. tel:[phone] [facility] [address], [place], [place], [address], tel:[phone] [place] No Information 7 Dellamano Magan. . Referring Provider: Osvaldo Murdock, [address] [place], [address]. tel:[phone] [facility] [address], [place], [place], [address], [place] tel:[phone] [place] No Information 7 Dellamano Magan. . Referring Provider: Osvaldo Murdock, [address] [facility] [place], [address]. tel:[phone] [facility] [address], [place], [place], [address], [place] tel:[phone] [place] No Information Oct-0 9-201 7 Dellamano Magan. . Referring Provider: Osvaldo Murdock, [address], [place], [address]. tel:[phone] [facility] [address], [place], [place], [address], [place] tel:[phone] [place] No Information Oct-0 2-201 7 Dellamano Magan. . Referring Provider: Osvaldo Murdock, [address], [place], [address]. tel:[phone] [facility] [address], [place], [place], [address], [place] tel:[phone] [place] No Information Sep-2 8-201 7 Dellamano Magan. . Referring Provider: Osvaldo Murdock, [address], [place], [address]. tel:[phone] [facility] [address], [place], [place], [address], [place] tel:[phone] [place] No Information Sep-2 6-201 7 Dellamano Magan. . Referring Provider: Osvaldo Murdock, [address], [place], [address]. tel:[phone] [facility] [address], [place], [place], [address], [place] tel:[phone] [place] No Information Sep-2 5-201 7 Dellamano Magan. . Referring Provider: Osvaldo Murdock, [address], [place], [address]. tel:[phone] [facility] [address], [place], [place], [address], [place] tel:[phone] [place] No Information Sep-2 1-201 7 Dellamano Magan. . Referring Provider: Osvaldo Murdock, [address], [place], [address]. tel:[phone] [facility] [address], [place], [place], [address], tel:[phone] [place] No Information Sep- [facility]. . Referring Provider: Osvaldo Murdock, [address], [place], [address]. tel:[phone] [facility] [address], [place], [place], [address], tel:[phone] [place] No Information Sep- [facility] Magan. . Referring Provider: Osvaldo Murdock, [address], [place], [address]. tel:[phone] [facility] [address], [place], [place], [address], tel:[phone] [place] Stiffness of right knee, not elsewhere classifiedMuscle weakness (generalized)Unsp ecified abnormalities of gait and mobilityPain in right knee Sep- [facility] Magan. . Referring Provider: Osvaldo Murdock, [address], [place], [address]. tel:[phone] Family History Family Member Type Diagnosis Age At Onset No Information Payers Payer name Insurance type Covered libertarian ID Rakesh galvez(s) R CI [id number] Social History Type Description Quantity Date Captured Comments Sex Female Smoking Status No Information Chief Complaint And Reason For Visit No Information Reason For Referral Reason For Referral No Information History Of Present Illness Encounter Date Complaint History Of Prese nt Illness No Information Functional Status Date Functional Assessmen t No Information Instructions Date Instruction Additional Infor mation No Information Assessments Type Assessment Date No Information Patient Care Teams Name Effective Dates (start - stop) Status Members No Information
--- OUTSIDE RECORDS SUMMARY | 2025-06-27 07:57 | XMS_ITS | Clinical Summary ---
Author Organization [facility] Address [address] [address] Care Team Providers Care Stucco Mason Name Role Phone Unavailable Primary Care Provider Unavailabl e Allergies Active Allergy Reactions Criticality Noted Date Comments Adhesive Tape-Silicones Rash Low 04/21/2022 Azithromycin Rash Low 04/21/2022 Medications methylphenidate HCl (CONCERTA) 36 mg Extended Release tablet Take 1 tablet by mouth every day after a meal 30 Tablet 07/21/2022 Active Encounters Date Type Department Care Team Description 05/12/2025 External Device Data [facility] ABSTRACTION Provider, Abstract 04/07/2025 External Device Data [facility]STRACTION Provider, Abstract [...]
--- OUTSIDE RECORDS SUMMARY | 2025-06-27 07:57 | XMS_ITS | Clinical Summary ---
Author Organization [facility] Address [address] [place] [address] Care Team Providers Care Market Reporter Name Role Phone Unavailable Primary Care Provider [...] 3-dose series) 2022 COVID-19 Vaccine (1 - 2024-2 6 season) 2025 Influenza Adult (#1) 2025 Hepatitis A Vaccines Aged Out No long er eligible based on patient's age to complete this topic Meningococcal Vaccine Aged Out No perry patricio [...]
--- OUTSIDE RECORDS SUMMARY | 2025-06-27 07:57 | XMS_ITS | Clinical Summary ---
Author Organization [address] Address [address] [place] [address] [place] [address] Care Team Providers Care Bow Making Machine Operator Name Role Phone Shelby Greer Primary Care Provider [phone] Allergies Active Allergy Reactions Criticality Noted Date Comments Adhesive Tape-Silicones Rash Medium 04/21/2022 Azithromycin Rash,Urticaria Medium 04/03/2017 Srvmttmj-Zalnvxcfuk-Colkfpvem Urticaria Medium 2016 Medications chlorhexidine (PERIDEX) 0.12 % solution 4 Active clindamycin (CLEOCIN T) 1 % external solution 4 Active Vestura, 28, 3-0.02 mg per tablet Take 1 tablet by mouth daily 4 Active ondansetron (ZOFRAN) 4 mg tablet Take by mouth 4 Active PreviDent 5000 Sensitive 1.1-5 % paste USE DIRECTED TWICE DAILY TO BRUSH 4 Active PreviDent 5000 Plus 1.1 % cream 2 (two) times a day 4 Active aluminum chloride (DRYSOL) 20 % external solutionIndicatio ns:Hyperhidrosis Apply topically nightly To the affected area. Wash off in the morning. 35 mL 5 Active sertraline (ZOLOFT) 100 mg tabletIndications :CARMELINA (generalized anxiety disorder) TAKE 1 TABLET BY MOUTH EVERY DAY 90 tablet 1 5 Active cyclobenzaprine (FLEXERIL) 10 mg tablet TAKE 1 TABLET BY MOUTH THREE TIMES A DAY NEEDED FOR MUSCLE SPASM 5 Active spironolactone (ALDACTONE) 25 mg tabletIndications :Acne vulgaris TAKE 1 TABLET (25 MG TOTAL) BY MOUTH DAILY. 90 tablet 3 5 Active lisdexamfetamine (VYVANSE) 40 mg capsuleIndication s:Attention deficit hyperactivity disorder (ADHD), predominantly inattentive type Take 1 capsule (40 mg total) by mouth every morning 30 capsule 5 Active lisdexamfetamine (VYVANSE) 40 mg capsuleIndication s:Attention deficit hyperactivity disorder (ADHD), predominantly inattentive type Take 1 capsule (40 mg total) by mouth every morning 30 capsule 5 025 Discontin ued(Reord er) Active Problems Problem Noted Date Diagnosed Date Hyperhidrosis 03/13/2025 Assessment & Plan (03/18/2025 4:00 PM CDT): Class 3 severe obesity witho ut serious comorbidity with body mass index (BMI) of 50.0 to 59.9 in adult 08/28/2024 Assessment & Plan (03/18/2025 4:00 PM CDT): Assessment & Plan (08/28/2024 2:58 PM BALLET DANCER): Reviewed BMI Focus on healthy diet options [...] CDT): Assessment & Plan (08/28/2024 2:58 PM BALLET DANCER): Chronic and not controlled. Increase Zoloft to 100 mg daily. Follow-up in 1 month for recheck or sooner if needed. Assessment & Plan (02/08/2024 9:17 AM CDT): Chronic. See above. Acne vulgaris 09/21/2023 Assessment & Plan (03/18/2025 4:00 PM CDT): Assessment & Plan (08/28/2024 2:57 PM BALLET DANCER): Chronic. No longer sees Dermatology. We discussed trial of spironolactone to help with acne. She was recently diagnosed with insulin resistance, and I think PCOS is also possibility. We discussed side effects. Patient agreeable. Will follow-up in 1 month for recheck. Check BMP at that time. Assessment & Plan (02/08/2024 9:43 AM CDT): Chronic and controlled with fzwx-ing-ezllyug treatments. Continue current care. Assessment & Plan (09/21/2023 8:30 AM BALLET DANCER): Chronic. Currently using clindamycin solution and chlorhexidine as needed. Patient will let me know when she needs refills. Continue current management. CARMELINA (generalized anxiety disorder) 09/21/2023 Assessment & Plan (03/18/2025 4:00 PM CDT): Assessment & Plan (08/28/2024 2:58 PM BALLET DANCER): See above. Assessment & Plan (02/08/2024 9:44 AM CDT): Patient is doing well with her sertraline 75 mg right now. Will wait and see how she does with her new job. If needed we can increase to 100 mg. She will update me via [employer] to let me know how she is doing. Assessment & Plan (09/21/2023 8:31 AM BALLET DANCER): Chronic. Not currently controlled. Patient interested in [...] CDT): Assessment & Plan (08/28/2024 2:58 PM BALLET DANCER): Chronic. Symptoms are still uncontrolled. Will increase [...] needed. Assessment & Plan (09/21/2023 8:32 AM BALLET DANCER): Chronic. Currently doing well on Vyvanse 20 mg daily. Continue current management. Patient will let me know when she is due for refill. Follow-up 6 months or sooner as needed. Routine adult health maintenance 09/20/2023 Overview (03/18/2025): Health Maintenance: -PCV20: N/A -Tdap vaccine: 2024 -Influenza vaccine: due in Fall -Shingles vaccine: N/A -Colonoscopy: N/A -Last WWE: with BUTTON SEWER HAND -Last Mammogram: N/A -Last DEXA: N/A -Last [...] changes Assessment & Plan (09/21/2023 8:30 AM BALLET DANCER): Reviewed BMI Focus on healthy diet options Work on healthy changes Encounters Date Type Department Care Team Description 04/03/2025 Telephone [facility] Family Medicine [address] [place] [phone] Shelby Greer PA Medical Question/Miscellaneous from Last 3 Months Immunizations Immunization Administration [...] on file Legal Sex Female 4:27 AM BALLET DANCER Gender Identity Female 09/21/2023 9:06 AM BALLET DANCER Sexual Orientation Straight 02/01/2024 8: 48 AM [...] Bexsero SCDM 2-dose series) 08/10/2024 02/08/2024, 02/27/2022 Covid-19 Vaccine (2024-2 6 season) 2025 04/25/2024, 05/04/2023, 05/24/2022, Additional history exists Influenza Vaccine (#1) 2025 [...] 06/06/2004 HPV Vaccines Completed 02/26/2018, 05/23, 02/20/2017 Insurance [facility] Address: [facility] [address] [place] [address] Care Teams Bow Making Machine Operator Relationship Specialty Start Date End Date Shelby Greer PA [address] [place] [address] [phone] PCP - General Family Medicine 09/10/23
--- OUTSIDE RECORDS SUMMARY | 2025-06-27 07:57 | XMS_ITS | Clinical Summary ---
Author Organization [facility] Address [address] [place] [address] Care Team Providers Care Facilities Engineer Name Role Phone Enma Corral MD Primary Care Provider [phone] [facility],non-owned Affiliates and Associated Physician Practices is amultiple site organization consisting of ambulatory clinics and hospital sitesin [place], [place], [place] and [place]. This disclosure is being madepursuant to the Care Everywhere program and may not contain all information available regarding this patient. Last updated 18.[facility] [email or web address] Allergies Active Allergy Reactions Criticality Noted Date Comments Dnuyyphd-Nveioeyebn-Qrzepxmfu Urticaria Medium 2016 Azithromycin Urticaria Medium 04/03/2017 [...] of 3 - 19+ 3-dose series) 2022 DEPRESSION SCREENING 07/23/2024 COVID-19 VACCINE (1 - 2024-2 6 season) 2025 INFLUENZA VACCINE (#1) 2025 ZOSTER VACCINE (1 of 2) 2053 HIB VACCINE Aged Out No longer eligi ble based on patient's age to complete this topic MENINGOCOCCAL GROUPS A/C/Y/W VACCINE Aged Out No longer eligible b ased on patient's age to complete this topic PNEUMOCOCCAL VACCINE Aged Out No long er eligible based on patient's age to complete this topic Insurance [facility] Care Teams Facilities Engineer Relationship Specialty Start Date End Date Enma Corral MD [address] [place] [address] PCP - General Pediatrics 03/27/17
[2025-06-27 09:12] LABS: Hematocrit 41.4 % (37.0-47.0); Hemoglobin 13.1 g/dL (12.0-15.0); Mean Corpuscular HGB Conc 31.6 g/dl (32-36); Mean Corpuscular Hemoglobin 28.4 pg (26-34); Mean Corpuscular Volume 89.6 fl (80-100); Platelet Count Result 342 k/mm3 (150-375); Red Blood Count 4.62 M/mm3 (4.2-5.4); White Blood Count 6.9 K/mm3 (4.5-10.0)
[2025-06-27 09:23] LABS: Hemoglobin A1C 5.3 % (<5.7)
[2025-06-27 09:38] LABS: Alanine Aminotransferase 14 U/L (6-35); Albumin Level 4.2 g/dL (3.5-5.1); Alkaline Phosphatase 57 U/L (38-126); Anion Gap 6 mmol/L (4-12); Aspartate Amino Transferase 23 U/L (14-36); Bilirubin,Total 0.5 mg/dL (0.2-1.3); Blood Urea Nitrogen 5 mg/dL (7-17); Calcium 8.8 mg/dL (8.4-10.2); Carbon Dioxide 24 mmol/L (22-30); Chloride 106 mmol/L (98-107); Cholesterol 193 mg/dL (0-200); Estimated Glomerular Filt Rate > 60; Glucose 91 mg/dL (65-110); HDL Direct 72 mg/dL; Potassium 4.2 mmol/L (3.4-5.0); Sodium 136 mmol/L (137-145); Total Protein 7.4 g/dL (6.3-8.2); Triglycerides 106 mg/dL (<150)
[2025-06-27 09:52] LABS: Free T4 Free Thyroxine 0.88 ng/dL (0.78-2.19)
[2025-06-27 10:15] LABS: Thyroid Stimulating Hormone 0.407 uIU/mL (0.465-4.680)
[2025-06-27 10:34] LABS: Vitamin B12 335.0 pg/mL (239-931)
== END 2025-06-27 07:52 | disposition home or self-care (01) ==
LOC: ANHLAB 07:56
PROVIDERS: PCP Physician Assistant
DX: Z01.419 Encounter for gynecological examination (general) (routine) without abnormal findings (principal); E28.2 Polycystic ovarian syndrome; E13.21 Other specified diabetes mellitus with diabetic nephropathy
CPT/HCPCS: 36415; 80053; 80061; 82306; 82607; 82627; 83036; 83498; 83525; 84146; 84439; 84443; 85027